=== PATIENT | male | born 1975 | race Hispanic/Latino ===

== ENCOUNTER 2016-08-06 18:19 | Inpatient (IN) | payer MEDICARE ==
[2016-08-06] MEDS ORDERED: KEPPRA 1,000 MG/NS 0.75% 100ML 100 ML IV ONE (18:42)
[2016-08-06] MEDS ORDERED: BOOSTRIX IM ONE (20:16)
[2016-08-06] MEDS ORDERED: NACL 0.9% 1000 ML 1,000 ML IV ONE (20:17)
--- NOTE | 2016-08-06 20:18 | Emergency Department Report ---
ED General Adult HPI - General Chief complaint: Seizure Stated complaint: SIEZURE Time Seen by Provider: 08/06/16 20:09 Source: EMS, RN notes reviewed Mode of arrival: Stretcher Limitations: Altered Mental Status - History of Present Illness Initial comments: This is a 41-year-old male, previously unknown to me. He is brought to the hospital by EMS for altered mental status and possible seizure. As per EMS documentation, patient is found on the floor, actively seizing. Documented history of psychiatric disease, also document a history of seizures, but do not further elaborate. EMS documents last seizure approximately 5 months ago. Apparently bystanders stated seizure lasted 10-15 minutes. EMS documents bilateral lung crackles, patient actively seizing, given 2.0 mg of Ativan, and seizing stopped postmedication. A document patient remained postictal. When I evaluate the patient, he is nonverbal, protecting his airway, moving for extremity is, but cannot further elaborate or describe any symptoms. As per nursing documentation: spoke w/ father Maurizio Alvarez, and [facility] number Elda Durham pt's housing . and [facility] updated history refer to chart. spoke w/ Mr. Gagnon @ [employer], states pt had seizure at 0630. states "pt was in restroom, and started shaking, and sweating and fell and hit his head against the tv stand, eyes rolling behing his head, he couldn't straighten out his fingers, and tensing up". states "this incident happened once a month ago" unable to recall hospital pt was sent to. home medications and provided. medications do not include anticonvulsant medications. -: Sudden Radiation: other (history of present illness) Quality: other (as per history of present illness) Consistency: other (as per history of present illness) Improves with: medication (terminated with Ativan) Worsens with: other (as per history of present illness) Associated Symptoms: other (as per history of present illness. Patient postictal, unable to further elaborate.) - Related Data Home Medications Medication Instructions Recorded Confirmed Last Taken Benztropine [Cogentin] 1 mg PO BID 08/06/16 08/06/16 Unknown Haloperidol Decanoate [Haldol 100 mg IM QMONTH 08/06/16 08/06/16 Unknown Decanoate] Haloperidol [Haldol] 10 mg PO BID 08/06/16 08/06/16 Unknown Allergies Allergy/AdvReac Type Severity Reaction Status Date / Time Unable to Assess Allergy Unverified 08/06/16 21:10 ED Review of Systems ROS: Stated complaint: SIEZURE Other details as noted in HPI Comment: Unobtainable due to pts medical conditions ED Past Medical Hx - Past Medical History Hx Psychiatric Treatment: Yes Additional medical history: unknown medical history - Surgical History Additional Surgical History: unknown - Social History Smoking Status: Current Every Day Smoker - Medications Home Medications: Home Medications Medication Instructions Recorded Confirmed Last Taken Type Benztropine [Cogentin] 1 mg PO BID 08/06/16 08/06/16 Unknown History Haloperidol Decanoate [Haldol 100 mg IM QMONTH 08/06/16 08/06/16 Unknown History Decanoate] Haloperidol [Haldol] 10 mg PO BID 08/06/16 08/06/16 Unknown History ED Physical Exam - General Limitations: Altered Mental Status General appearance: in no apparent distress - Head Head exam: Present: normocephalic, other (right-sided temporal ecchymosis noted. ) - Eye Eye exam: Present: normal appearance, PERRL. Absent: nystagmus - ENT ENT exam: Present: mucous membranes moist, TM's normal bilaterally, normal external ear exam (superficial abrasion/minimal lacerations noted to right posterior ear. 3 lacerations are noted. 1 cm, 0.5 cm, 0.5 cm. There is no foreign body.) - Neck Neck exam: Present: normal inspection. Absent: tenderness - Respiratory Respiratory exam: Present: rhonchi. Absent: respiratory distress - Cardiovascular Cardiovascular Exam: Present: regular rate, normal rhythm, normal heart sounds. Absent: bradycardia, tachycardia, irregular rhythm, systolic murmur, diastolic murmur, rubs, gallop - GI/Abdominal GI/Abdominal exam: Present: soft, normal bowel sounds. Absent: distended, tenderness, guarding, rebound, rigid, pulsatile mass - Rectal Rectal exam: Present: normal inspection - exam: Present: normal inspection - Extremities Exam Extremities exam: Present: normal inspection, normal capillary refill. Absent: tenderness, calf tenderness - Back Exam Back exam: Present: normal inspection, full ROM. Absent: tenderness, CVA tenderness (R), CVA tenderness (L), muscle spasm, paraspinal tenderness, vertebral tenderness - Neurological Exam Neurological exam: Present: altered, other (patient moves t 4 extremities spontaneously. Nonverbal.) - Psychiatric Psychiatric exam: Present: other (patient altered) - Skin Skin exam: Present: ecchymosis (os is noted to right forehead.) ED Course Vital Signs 08/06/16 08/06/16 08/06/16 18:55 19:01 19:18 Temperature 97.8 F Pulse Rate 76 77 Respiratory 21 22 20 Rate Blood Pressure Blood Pressure 139/93 [Left] O2 Sat by Pulse 100 99 99 Oximetry 08/06/16 08/06/16 08/06/16 20:00 21:00 21:31 Temperature 97.8 F Pulse Rate 83 97 H Respiratory 25 H 15 Rate Blood Pressure 155/101 159/91 Blood Pressure [Left] O2 Sat by Pulse 98 94 Oximetry 08/06/16 08/06/16 08/06/16 22:01 22:47 23:01 Temperature Pulse Rate 77 74 93 H Respiratory 22 20 28 H Rate Blood Pressure 179/106 179/106 191/118 Blood Pressure [Left] O2 Sat by Pulse 93 99 97 Oximetry 08/07/16 08/07/16 08/07/16 00:01 01:01 01:25 Temperature Pulse Rate 110 H Respiratory 15 25 H 18 Rate Blood Pressure 191/118 166/103 Blood Pressure 164/106 [Left] O2 Sat by Pulse 95 97 100 Oximetry 08/07/16 08/07/16 02:00 04:00 Temperature Pulse Rate 79 105 H Respiratory 18 24 Rate Blood Pressure 158/94 Blood Pressure 160/111 [Left] O2 Sat by Pulse 96 100 Oximetry - Reevaluation(s) Reevaluation #1: 08/06/16 21:24 Differential diagnosis: Intracranial injury, cervical spine injury, pneumonia, urinary tract infection, electrolyte imbalance, medication side effect (Haldol) disease. Assessment and plan: 41-year-old male status post convulsive episode, uncertain if he has a formal diagnosis of epilepsy, postictal. CAT scan of the head and cervical spine are ordered. Cervical collar is ordered. Tetanus vaccination is ordered. Right ear lacerations are very small, they can be repaired with steristrips Since nurse irrigated the ear wounds very thoroughly with sterile saline and adequate pressure, and then approximated with Steri-Strips. Laboratory studies pending. EKG pending. Urinalysis pending. Rectal temperature pending. Plain films pending. Reassess. 08/06/16 22:26 Reevaluation #2: 08/06/16 22:24 Patient afebrile rectally. Compartments soft. No clonus. No hyperreflexia. Loaded with Keppra. Found to be hyponatremic. Additional laboratory studies ordered. Nephrology paged. CAT scan of the head and cervical spine pending. Case discussed with Hospital physician, Dr. Jasso, who accepts the patient to his service. Reevaluation #3: 08/06/16 22:42 Dr. Sheriff of nephrology calls back. He recommends 200 mL of 3% hypertonic sodium chloride to be run over 6 hours. He also recommends a thyroid panel, uric acid level, serum osmolality, and serum sodium levels every 6 hours. His group will follow as a consult. Dr. Jasso, the hospital physician, accepts the patient to his service. I contacted the pharmacy, discussed these orders with the pharmacist, who is going to prepare the hypertonic saline. ED Medical Decision Making - Lab Data Result diagrams: 08/06/16 20:33 08/06/16 20:33 Vital Signs 08/06/16 19:18 Temperature 97.8 F Pulse Rate 77 Respiratory 20 Rate Blood Pressure 139/93 [Left] O2 Sat by Pulse 99 Oximetry Lab Results 08/06/16 08/06/16 08/06/16 Range/Units 20:33 20:33 20:33 WBC 18.3 H (4.5-11.0) K/mm3 RBC 5.11 H (3.65-5.03) M/mm3 Hgb 15.6 H (11.8-15.2) gm/dl Hct 44.6 (35.5-45.6) % MCV 87 (84-94) fl MCH 31 (28-32) pg MCHC 35 H (32-34) % RDW 13.0 L (13.2-15.2) % Plt Count 238 (140-440) K/mm3 Seg Neutrophils % [employer] Custodian PT 13.9 (12.2-14.9) Sec. INR 1.08 (0.87-1.13) Estimated GFR > 60 ml/min BUN/Creatinine Ratio 8.33 % Albumin/Globulin Ratio 2.0 % Plasma/Serum Alcohol (0-0.07) gm% 08/06/16 Range/Units 20:33 WBC (4.5-11.0) K/mm3 RBC (3.65-5.03) M/mm3 Hgb (11.8-15.2) gm/dl Hct (35.5-45.6) % MCV (84-94) fl MCH (28-32) pg MCHC (32-34) % RDW (13.2-15.2) % Plt Count (140-440) K/mm3 Seg Neutrophils % PT (12.2-14.9) Sec. INR (0.87-1.13) Estimated GFR ml/min BUN/Creatinine Ratio % Albumin/Globulin Ratio % Plasma/Serum Alcohol < 0.01 (0-0.07) gm% - EKG Data 08/06/16 22:27 normal sinus, 77 bpm, QTC 470 ms, borderline atrial enlargement, abnormal EKG, not morphologically consistent with stemi - Radiology Data Radiology results: report reviewed, image reviewed Critical Care Time: Yes Critical care time in (mins) excluding proc time.: 35 Critical care attestation.: If time is entered above; I have spent that time in minutes in the direct care of this critically ill patient, excluding procedure time. Critical Care Time: Critical care time includes multiple bedside evaluations, interpretation of laboratory studies, radiology studies, time spent managing a critically ill patient with severe hyponatremia causing change in mental status, requiring initiation of hypertonic saline, consultation with nephrology and hospital medicine. This excludes procedure time. ED Disposition Clinical Impression: Hyponatremia, Altered mental status Disposition: OP ADMITTED IP TO THIS HOSP Is pt being admited?: Yes Condition: Fair
[2016-08-06] MEDS ORDERED: GEODON IM ONE ×2 (20:45→20:49)
[2016-08-06] MEDS ORDERED: WATER FOR INJ (PF) 10 ML ONE (20:50)
[2016-08-06] MEDS ORDERED: NACL 0.9% IR ONE (21:00)
[2016-08-06] MEDS ORDERED: NACL 0.9% 500 ML IR ONE (21:04)
[2016-08-06 21:10] LABS: Hematocrit 44.6 % (35.5-45.6); Hemoglobin 15.6 gm/dl (11.8-15.2); Mean Corpuscular HGB Conc 35 % (32-34); Mean Corpuscular Hemoglobin 31 pg (28-32); Mean Corpuscular Volume 87 fl (84-94); Platelet Count 238 K/mm3 (140-440); Red Blood Count 5.11 M/mm3 (3.65-5.03); White Blood Count 18.3 K/mm3 (4.5-11.0)
[2016-08-06 21:17] LABS: INR 1.08 (0.87-1.13)
[2016-08-06 21:22] LABS: Urine Drugs of Abuse Note Disclamer
[2016-08-06 21:23] LABS: Alanine Aminotransferase 12 units/L (7-56); Albumin 4.5 g/dL (3.9-5); Alkaline Phosphatase 87 units/L (35-129); BUN/Creatinine Ratio 8.33; Bilirubin,Total 1.2 mg/dL (0.1-1.2); Blood Urea Nitrogen 5 mg/dL (9-20); Calcium 8.9 mg/dL (8.4-10.2); Carbon Dioxide 21 mmol/L (22-30); Chloride 79.5 mmol/L (98-107); Creatine Kinase 440 units/L (55-170); Glucose 123 mg/dL (75-100); Potassium 4.2 mmol/L (3.6-5.0); Total Protein 6.7 g/dL (6.3-8.2)
[2016-08-06 21:36] LABS: Bilirubin,Urine NEG (Negative); Blood,Urine NEG (Negative); Ketones,Urine TR mg/dL (Negative); Leukocyte Esterase,Urine NEG (Negative); Nitrite,Urine NEG (Negative); Protein,Urine <15 mg/dL mg/dL (Negative); RBC,Urine < 1.0 /HPF (0.0-6.0); Urobilinogen,Urine < 2.0 mg/dL (<2.0); WBC,Urine < 1.0 /HPF (0.0-6.0)
[2016-08-06 21:38] LABS: Anion Gap 20 mmol/L; Sodium 116 mmol/L (137-145)
--- NOTE | 2016-08-06 21:42 | Admit Criteria Form ---
Admission Criteria Documentation: SEIZURE: OBSERVATION CARE USE THIS FORM ONLY WHEN INPATIENT ADMISSION CRITERIA ARE NOT MET. (Place X for any and all applicable criteria): Placement for observation care is indicated for a patient with ANY ONE of the following (1)(2)(3)(4)(5)(6)(7)(8): []I. Mental status not returned to baseline []II. New neurologic deficit after postictal period []III. Metabolic cause, such as hypoglycemia or hyponatremia []IV. Underlying disorder that requires further observation []V. Multiple seizures before arrival in emergency department []. Medication initiation or adjustment planned that requires further observation []VII. A child whose situation includes ANY ONE of the following: []a) Clinical response to outpatient therapy uncertain []b) Outpatient observation by parents or caregivers uncertain [X]VIII. Other observation care needs (Use General Criteria: Observation Care) The original [facility] [employer] content created by [facility] [employer] has been revised. The portions of the content which have been revised are identified through the use of italic text, and [facility] has neither reviewed nor approved the modified material. All other unmodified content is copyright [facility]. Please see references footnoted in the original [facility] edition 2014 Admission Criteria Met: Pending
[2016-08-06] MEDS ORDERED: KEPPRA 1,000 MG in D5W 100 ML IV ONE (21:46)
[2016-08-06 21:56] LABS: Basophils % (Manual) 0 % (0.0-1.8); Blastocytes % (Manual) 0 %; Eosinophils % (Manual) 0 % (0.0-4.3)
[2016-08-06 21:57] LABS: Anisocytosis Few; Diff Status Complete; Poikilocytosis Few
[2016-08-06] MEDS ORDERED: VALIUM ONE (22:01)
[2016-08-06] MEDS ORDERED: VALIUM IV ONE (22:42)
--- NOTE | 2016-08-06 22:50 | History and Physical Report ---
History of Present Illness Chief complaint: confusion History of present illness: 41 YO Male with Nicotine Dependence, Psychosis presents to ED for confusion. Pt unable to provide history. Pt found down as per EMS undergoing active seizure. Pt transported to ED for evaluation. Pt found to have hyponatremia. Pt treated with hypertonic saline in ED. Pt transferred to ICU. Past History Past Medical History: other (Nicotine Dependence) Past Surgical History: No surgical history, Other (reviewed) Social history: single, lives with family, smoking. denies: alcohol abuse, prescription drug abuse Family history: no significant family history, other (reviewed) Medications and Allergies Allergies Allergy/AdvReac Type Severity Reaction Status Date / Time Unable to Assess Allergy Unverified 08/06/16 21:10 Home Medications Medication Instructions Recorded Confirmed Last Taken Type Benztropine [Cogentin] 1 mg PO BID 08/06/16 08/06/16 Unknown History Haloperidol Decanoate [Haldol 100 mg IM QMONTH 08/06/16 08/06/16 Unknown History Decanoate] Haloperidol [Haldol] 10 mg PO BID 08/06/16 08/06/16 Unknown History Active Meds: Active Medications Sodium Chloride (Nacl 3%) 500 mls @ 33 mls/hr IV DIRECT GILBERTO Review of Systems ROS unobtainable: due to mental status Exam - Constitutional Vitals: Temp Pulse Resp BP Pulse Ox 97.8 F 77 20 139/93 100 08/06/16 21:31 08/06/16 19:18 08/06/16 19:18 08/06/16 19:18 08/06/16 19:18 General appearance: Present: severe distress - EENT Eyes: Present: PERRL ENT: hearing intact, clear oral mucosa - Neck Neck: Present: supple, normal ROM - Respiratory Respiratory: bilateral: CTA - Cardiovascular Heart Sounds: Present: S1 & S2. Absent: rub, click - Extremities Extremities: pulses symmetrical, No edema Peripheral Pulses: within normal limits - Abdominal General gastrointestinal: Present: soft, non-tender, non-distended Male genitourinary: Present: normal - Integumentary Integumentary: Present: clear, warm, dry, decreased turgor - Musculoskeletal Musculoskeletal: generalized weakness - Psychiatric Psychiatric: no appropriate mood/affect, no intact judgment & insight, no memory intact, agitated - Neurologic Neurologic: moves all extremities Results - Labs CBC & Chem 7: 08/06/16 20:33 08/07/16 07:49 Labs: Abnormal lab results 08/06/16 08/06/16 08/06/16 Range/Units 20:33 20:33 20:33 WBC 18.3 H (4.5-11.0) K/mm3 RBC 5.11 H (3.65-5.03) M/mm3 Hgb 15.6 H (11.8-15.2) gm/dl MCHC 35 H (32-34) % RDW 13.0 L (13.2-15.2) % Seg Neuts % (Manual) 93.0 H (40.0-70.0) % Lymphocytes % (Manual) 4.0 L (13.4-35.0) % Seg Neutrophils # Man 17.0 H (1.8-7.7) K/mm3 Lymphocytes # (Manual) 0.7 L (1.2-5.4) K/mm3 Sodium 116 L* (137-145) mmol/L Chloride 79.5 L (98-107) mmol/L Carbon Dioxide 21 L (22-30) mmol/L BUN 5 L (9-20) mg/dL Creatinine 0.6 L (0.8-1.5) mg/dL Glucose 123 H (75-100) mg/dL Total Creatine Kinase 440 H (55-170) units/L Ur Specific [place] (1.003-1.030) Salicylates < 0.3 L (2.8-20.0) mg/dL 08/06/16 Range/Units 21:17 WBC (4.5-11.0) K/mm3 RBC (3.65-5.03) M/mm3 Hgb (11.8-15.2) gm/dl MCHC (32-34) % RDW (13.2-15.2) % Seg Neuts % (Manual) (40.0-70.0) % Lymphocytes % (Manual) (13.4-35.0) % Seg Neutrophils # Man (1.8-7.7) K/mm3 Lymphocytes # (Manual) (1.2-5.4) K/mm3 Sodium (137-145) mmol/L Chloride (98-107) mmol/L Carbon Dioxide (22-30) mmol/L BUN (9-20) mg/dL Creatinine (0.8-1.5) mg/dL Glucose (75-100) mg/dL Total Creatine Kinase (55-170) units/L Ur Specific [place] 1.001 L (1.003-1.030) Salicylates (2.8-20.0) mg/dL Assessment and Plan - Patient Problems (1) Hyponatremia Current Visit: Yes Status: Acute Plan to address problem: Hypertonic saline, Nephrology consulted in ED. Pt admitted to ICU. The high probability of a clinically significant, sudden or life threatening deterioration of the [Endocrine, Respiratory] system(s) required my full and direct attention, intervention and personal management. The aggregate critical care time was [60] minutes. This time is in addition to time spent performing reported procedures but includes the following: [x] Data Review and interpretation [x] Patient assessment and monitoring of vital signs [x] Documentation [x] Medication orders and management (2) Encephalopathy Current Visit: Yes Status: Acute Plan to address problem: treat hyponatremia (3) Psychosis Current Visit: Yes Status: Acute Plan to address problem: Haldol prn, soft limb restraints. (4) Seizure disorder Current Visit: Yes Status: Acute Plan to address problem: secondary to hyponatremia, treat hyponatremia. (5) DVT prophylaxis Current Visit: Yes Status: Acute
--- NOTE | 2016-08-06 23:06 | XRay Report ---
FINAL REPORT EXAM: XR CHEST 1V AP HISTORY: Altered Mental Status TECHNIQUE: Single, portable chest x-ray. PRIORS: None. FINDINGS: Cardiac and mediastinal silhouette within normal limits. Lungs show mild elevation or eventration of right hemidiaphragm and probable discoid atelectasis versus scarring in the bilateral lower lungs. No focal consolidation or apparent pneumothorax. IMPRESSION: 1. Probable bibasilar atelectasis versus scarring. 2. No acute consolidation.
[2016-08-06] MEDS: NACL 3% 500 ML IV SCH (23:25)
--- NOTE | 2016-08-07 00:32 | Cat Scan Report ---
FINAL REPORT EXAM: CT HEAD/BRAIN WO CON HISTORY: Altered Mental Status TECHNIQUE: Noncontrast CT axial images of the brain. PRIORS: None. FINDINGS: No parenchymal mass, mass effect, hemorrhage, midline shift or hydrocephalus. No evidence of acute cortical infarct. No abnormal, extra-axial fluid or air collection. Osseous calvarium grossly intact. IMPRESSION: 1. No acute intracranial findings.
--- NOTE | 2016-08-07 00:34 | Cat Scan Report ---
FINAL REPORT EXAM: CT CERVICAL SPINE WO CON HISTORY: ams TECHNIQUE: Spiral CT scanning of the cervical spine, with axial images and multiplanar reformations. PRIORS: None. FINDINGS: No acute compression deformity or gross malalignment of cervical vertebral bodies. No apparent fracture identified. No acute, osseous central spinal canal encroachment. Paraspinal soft tissues grossly unremarkable. IMPRESSION: 1. No acute compression deformity or apparent fracture in the cervical spine.
[2016-08-07] MEDS ORDERED: HALDOL ONE (01:06)
[2016-08-07] MEDS: HALDOL IM PRN ×3 (02:04→13:35)
[2016-08-07] MEDS: APRESOLINE IV PRN ×2 (05:23→13:09)
[2016-08-07 06:34] LABS: BUN/Creatinine Ratio 6.66; Blood Urea Nitrogen 4 mg/dL (9-20); Calcium 9.5 mg/dL (8.4-10.2); Carbon Dioxide 22 mmol/L (22-30); Chloride 96.5 mmol/L (98-107); Glucose 82 mg/dL (75-100); Potassium 4.2 mmol/L (3.6-5.0); Sodium 134 mmol/L (137-145)
[2016-08-07 06:37] LABS: Anion Gap 20 mmol/L
[2016-08-07] MEDS: NACL 3% 500 ML IV SCH (07:11)
[2016-08-07] MEDS: ZOSYN/NS 4.5GM/100ML 100 ML IV SCH ×4 (07:30→23:42)
--- NOTE | 2016-08-07 08:17 | XRay Report ---
AP PELVIS: AP view of the pelvis shows normal pelvic contour and soft tissues. The hips are symmetric and within normal limits as are the sacroiliac joints. IMPRESSION: Normal pelvis.
[2016-08-07 08:23] LABS: BUN/Creatinine Ratio 8.33; Blood Urea Nitrogen 5 mg/dL (9-20); Calcium 9.1 mg/dL (8.4-10.2); Carbon Dioxide 22 mmol/L (22-30); Glucose 89 mg/dL (75-100)
[2016-08-07 08:24] LABS: Chloride 97.9 mmol/L (98-107); Potassium 3.8 mmol/L (3.6-5.0); Sodium 134 mmol/L (137-145)
[2016-08-07 08:28] LABS: Anion Gap 18 mmol/L
--- NOTE | 2016-08-07 08:45 | Consultation ---
History of Present Illness - Reason for Consult Consult date: 08/07/16 hyponatremia Requesting physician: WALTER NORRIS - History of Present Illness This is a 41-year-old male, brought to the hospital by EMS for altered mental status and possible seizure. As per EMS documentation, patient was found on the floor, actively seizing. Documented history of psychiatric disease, also document a history of seizures. Apparently bystanders stated seizure lasted 10-15 minutes. Patient had received some Geodon and not able to get any additional history from patient. Renal consult is requested for hyponatremia. His serum sodium was 116 yesterday. He had received about 200 mL of 3% saline overnight. His serum sodium this morning is 134. Review of our but indicates that he had put out about 10 L of urine since he has been in the emergency room. Past History Past Medical History: seizures, other (psychiatric disorder) Past Surgical History: Other (unknown) Social history: other (patient lives in a fdc house) Family history: other (unknown) Medications and Allergies Allergies Allergy/AdvReac Type Severity Reaction Status Date / Time Unable to Assess Allergy Unverified 08/06/16 21:10 Home Medications Medication Instructions Recorded Confirmed Last Taken Type Benztropine [Cogentin] 1 mg PO BID 08/06/16 08/06/16 Unknown History Haloperidol Decanoate [Haldol 100 mg IM QMONTH 08/06/16 08/06/16 Unknown History Decanoate] Haloperidol [Haldol] 10 mg PO BID 08/06/16 08/06/16 Unknown History Active Meds: Active Medications Benztropine Mesylate (Cogentin) 1 mg PO BID GILBERTO Haloperidol Lactate (Haldol) 5 mg IM Q6H PRN PRN Reason: Agitation Last Admin: 08/07/16 02:04 Dose: 5 mg Hydralazine HCl (Apresoline) 10 mg IV Q6H PRN PRN Reason: Hypertension Last Admin: 08/07/16 05:23 Dose: 10 mg Sodium Chloride (Nacl 3%) 500 mls @ 33 mls/hr IV DIRECT GILBERTO Stop: 08/07/16 14:10 Last Admin: 08/07/16 07:11 Dose: Not Given Levofloxacin/Dextrose (Levaquin 750mg/150ml) 150 mls @ 100 mls/hr IV Q24HR GILBERTO PRN Reason: Protocol Piperacillin Sod/Tazobactam Sod (Zosyn/Ns 4.5gm/100ml) 100 mls @ 100 mls/30 min IV Q6HR GILBERTO PRN Reason: Protocol Last Admin: 08/07/16 07:30 Dose: 100 mls/30 min Review of Systems ROS unobtainable: due to mental status Exam - Vital Signs Vital signs: Vital Signs Resp Pulse Ox 21 100 08/06/16 18:55 08/06/16 18:55 - General Appearance General appearance: well-developed, well-nourished, appears stated age EENT: PERRL, mucous membranes moist Neck: Present: neck supple, trachea midline. Absent: JVD/HJR, Masses Respiratory: Clear to Ascultation Heart: regular, normal heart rate, S1S2, no murmurs Gastrointestinal: Present: normal, normoactive bowel sounds Integumentary: no rash, warm and dry Neurologic: no focal deficit Results - Lab Results 08/06/16 20:33 08/07/16 07:49 Most recent lab results Calcium 9.1 mg/dL (8.4-10.2) 08/07/16 07:49 Magnesium 1.9 mg/dL (1.7-2.3) 08/06/16 20:33 Assessment and Plan Impression * Severe hyponatremia. 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 He is also polyuric. He has put out about 10 L of urine since his arrival to the ER. 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 He seems to have corrected his hyponatremia spontaneously * His serum sodium has gone up from 116 on admission to 134. Need to reduce the rate of rise of his serum sodium. Shall add intravenous dextrose and monitor his electrolytes closely * Shall check a urine sodium and urine osmolality. Shall also do additional workup for hyponatremia including a uric acid level, TSH and serum cortisol * Need strict intake and output * Shall check a magnesium and phosphorus level as well * Thank you very much for the consultation. Shall follow along with you
--- NOTE | 2016-08-07 09:06 | Progress Note ---
Assessment and Plan Assessment and plan: Patient is a 41-year-old male, brought to the hospital by EMS for altered mental status and possible seizure. He is a resident of a psychiatric facility called [facility] presented to the ER today with seizure similar to stimulus spur per staff of the facility. 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 Continue when necessary patient received Geodon, Risperdal. Continue restriants for safety Psych consulted (5) Seizure disorder No further seizure noted. DVT and GI prophylaxis Plan transfer out of the ICU in a.m. if sodium remains stable. The high probability of a clinically significant, sudden or life threatening deterioration of the [Neurological, Renal] system(s) required my full and direct attention, intervention and personal management. The aggregate critical care time was [45] minutes. This time is in addition to time spent performing reported procedures but includes the following: [X] Data Review and interpretation [X] Patient assessment and monitoring of vital signs [X] Documentation [X] Medication orders and management History Interval history: Patient seen and examined this morning,, acutely confused and trashing all over the place No adverse events reported to me by nursing staff Hospitalist Physical - Physical exam Narrative exam: VITAL SIGNS: Reviewed. GENERAL: The patient appeared well nourished and normally developed. Vital signs as documented. HEAD: No signs of head trauma. EYES: Pupils are equal. Extraocular motions intact. EARS: Hearing grossly intact. MOUTH: Oropharynx is normal. NECK: No adenopathy, no JVD. CHEST: Chest with clear breath sounds bilaterally. No wheezes, rales, or rhonchi. CARDIAC: Regular rate and rhythm. S1 and S2, without murmurs, gallops, or rubs. VASCULAR: No Edema. Peripheral pulses normal and equal in all extremities. ABDOMEN: Soft, without detectable tenderness. No sign of distention. No rebound or guarding, and no masses palpated. Bowel Sounds normal. MUSCULOSKELETAL: Good range of motion of all major joints. Extremities without clubbing, cyanosis or edema. NEUROLOGIC EXAM: Alert and oriented to some of. No focal sensory or strength deficits. Vision is normal patient not following any commands due to his uncles. PSYCHIATRIC: Confused and agitated. SKIN: No rash or lesions. - Constitutional Vitals: Temp Pulse Resp BP Pulse Ox 97.8 F 118 H 22 135/99 74 L 08/06/16 21:31 08/07/16 07:01 08/07/16 07:01 08/07/16 07:01 08/07/16 07:01 Results - Labs CBC & Chem 7: 08/07/16 10:22 08/07/16 14:47 Labs: Laboratory Last Values WBC 18.3 K/mm3 (4.5-11.0) H 08/06/16 20:33 RBC 5.11 M/mm3 (3.65-5.03) H 08/06/16 20:33 Hgb 15.6 gm/dl (11.8-15.2) H 08/06/16 20:33 Hct 44.6 % (35.5-45.6) 08/06/16 20:33 MCV 87 fl (84-94) 08/06/16 20:33 MCH 31 pg (28-32) 08/06/16 20:33 MCHC 35 % (32-34) H 08/06/16 20:33 RDW 13.0 % (13.2-15.2) L 08/06/16 20:33 Plt Count 238 K/mm3 (140-440) 08/06/16 20:33 Add Manual Diff Complete 08/06/16 20:33 Total Counted 100 08/06/16 20:33 Seg Neutrophils % Membership Correspondent 08/06/16 20:33 Seg Neuts % (Manual) 93.0 % (40.0-70.0) H 08/06/16 20:33 Band Neutrophils % 0 % 08/06/16 20:33 Lymphocytes % (Manual) 4.0 % (13.4-35.0) L 08/06/16 20:33 Reactive Lymphs % (Man) 0 % 08/06/16 20:33 Monocytes % (Manual) 3.0 % (0.0-7.3) 08/06/16 20:33 Eosinophils % (Manual) 0 % (0.0-4.3) 08/06/16 20:33 Basophils % (Manual) 0 % (0.0-1.8) 08/06/16 20:33 Metamyelocytes % 0 % 08/06/16 20:33 Myelocytes % 0 % 08/06/16 20:33 Promyelocytes % 0 % 08/06/16 20:33 Blast Cells % 0 % 08/06/16 20:33 Nucleated RBC % Not Reportable 08/06/16 20:33 Seg Neutrophils # Man 17.0 K/mm3 (1.8-7.7) H 08/06/16 20:33 Band Neutrophils # 0.0 K/mm3 08/06/16 20:33 Lymphocytes # (Manual) 0.7 K/mm3 (1.2-5.4) L 08/06/16 20:33 Abs React Lymphs (Man) 0.0 K/mm3 08/06/16 20:33 Monocytes # (Manual) 0.5 K/mm3 (0.0-0.8) 08/06/16 20:33 Eosinophils # (Manual) 0.0 K/mm3 (0.0-0.4) 08/06/16 20:33 Basophils # (Manual) 0.0 K/mm3 (0.0-0.1) 08/06/16 20:33 Metamyelocytes # 0.0 K/mm3 08/06/16 20:33 Myelocytes # 0.0 K/mm3 08/06/16 20:33 Promyelocytes # 0.0 K/mm3 08/06/16 20:33 Blast Cells # 0.0 K/mm3 08/06/16 20:33 WBC Morphology Not Reportable 08/06/16 20:33 Hypersegmented Neuts Not Reportable 08/06/16 20:33 Hyposegmented Neuts Not Reportable 08/06/16 20:33 Hypogranular Neuts Not Reportable 08/06/16 20:33 Smudge Cells Not Reportable 08/06/16 20:33 Toxic Granulation Not Reportable 08/06/16 20:33 Toxic Vacuolation Not Reportable 08/06/16 20:33 Dohle Bodies Not Reportable 08/06/16 20:33 Pelger-Huet Anomaly Not Reportable 08/06/16 20:33 [place] Rods Not Reportable 08/06/16 20:33 Platelet Estimate Appears normal 08/06/16 20:33 Clumped Platelets Not Reportable 08/06/16 20:33 Plt Clumps, EDTA Not Reportable 08/06/16 20:33 Large Platelets Not Reportable 08/06/16 20:33 Giant Platelets Not Reportable 08/06/16 20:33 Platelet Satelliting Not Reportable 08/06/16 20:33 Plt Morphology Comment Not Reportable 08/06/16 20:33 RBC Morphology Not Reportable 08/06/16 20:33 Dimorphic RBCs Not Reportable 08/06/16 20:33 Polychromasia Not Reportable 08/06/16 20:33 Hypochromasia Not Reportable 08/06/16 20:33 Poikilocytosis Few 08/06/16 20:33 Anisocytosis Few 08/06/16 20:33 Microcytosis Not Reportable 08/06/16 20:33 Macrocytosis Not Reportable 08/06/16 20:33 Spherocytes Not Reportable 08/06/16 20:33 Pappenheimer Bodies Not Reportable 08/06/16 20:33 Sickle Cells Not Reportable 08/06/16 20:33 Target Cells Not Reportable 08/06/16 20:33 Tear Drop Cells Not Reportable 08/06/16 20:33 Ovalocytes Not Reportable 08/06/16 20:33 Helmet Cells Not Reportable 08/06/16 20:33 [place] [employer] Bodies Not Reportable 08/06/16 20:33 [place] Rings Not Reportable 08/06/16 20:33 [place] Cells Not Reportable 08/06/16 20:33 Bite Cells Not Reportable 08/06/16 20:33 Crenated Cell Not Reportable 08/06/16 20:33 Elliptocytes Not Reportable 08/06/16 20:33 Acanthocytes (Spur) Not Reportable 08/06/16 20:33 Rouleaux Not Reportable 08/06/16 20:33 Hemoglobin C Crystals Not Reportable 08/06/16 20:33 Schistocytes Not Reportable 08/06/16 20:33 Malaria parasites Not Reportable 08/06/16 20:33 Bill Bodies Not Reportable 08/06/16 20:33 Hem Pathologist Commnt No 08/06/16 20:33 PT 13.9 Sec. (12.2-14.9) 08/06/16 20:33 INR 1.08 (0.87-1.13) 08/06/16 20:33 Sodium 134 mmol/L (137-145) L 08/07/16 07:49 Potassium 3.8 mmol/L (3.6-5.0) 08/07/16 07:49 Chloride 97.9 mmol/L (98-107) L 08/07/16 07:49 Carbon Dioxide 22 mmol/L (22-30) 08/07/16 07:49 Anion Gap 18 mmol/L 08/07/16 07:49 BUN 5 mg/dL (9-20) L 08/07/16 07:49 Creatinine 0.6 mg/dL (0.8-1.5) L 08/07/16 07:49 Estimated GFR > 60 ml/min 08/07/16 07:49 BUN/Creatinine Ratio 8.33 % 08/07/16 07:49 Glucose 89 mg/dL (75-100) 08/07/16 07:49 Osmolality 257 Mosm/kg 08/07/16 00:04 Lactic Acid 1.5 mmol/L (0.7-2.0) 08/07/16 05:52 Uric Acid 5.2 mg/dL (3.5-7.6) 08/07/16 00:04 Calcium 9.1 mg/dL (8.4-10.2) 08/07/16 07:49 Magnesium 1.9 mg/dL (1.7-2.3) 08/06/16 20:33 Total Bilirubin 1.2 mg/dL (0.1-1.2) 08/06/16 20:33 AST 20 units/L (5-40) 08/06/16 20:33 ALT 12 units/L (7-56) 08/06/16 20:33 Alkaline Phosphatase 87 units/L (35-129) 08/06/16 20:33 Total Creatine Kinase 440 units/L (55-170) H 08/06/16 20:33 Total Protein 6.7 g/dL (6.3-8.2) 08/06/16 20:33 Albumin 4.5 g/dL (3.9-5) 08/06/16 20:33 Albumin/Globulin Ratio 2.0 % 08/06/16 20:33 TSH 0.641 mlU/mL (0.270-4.200) 08/07/16 00:04 Free T4 1.92 ng/dL (0.76-1.46) H 08/07/16 00:04 Urine Color Colorless (Yellow) 08/06/16 21: Urine Turbidity Clear (Clear) 08/06/16 21: Urine pH 7.0 (5.0-7.0) 08/06/16 21:17 Ur Specific [place] 1.001 (1.003-1.030) L 08/06/16 21: Urine Protein <15 mg/dl mg/dL (Negative) 08/06/16 21: Urine Glucose (UA) Neg mg/dL (Negative) 08/06/16 21: Urine Ketones Tr mg/dL (Negative) 08/06/16 21: Urine Blood Neg (Negative) 08/06/16 21: Urine Nitrite Neg (Negative) 08/06/16 21: Urine Bilirubin Neg (Negative) 08/06/16 21: Urine Urobilinogen < 2.0 mg/dL (<2.0) 08/06/16 21: Ur Leukocyte Esterase Neg (Negative) 08/06/16 21: Urine WBC (Auto) < 1.0 /HPF (0.0-6.0) 08/06/16 21:17 Urine RBC (Auto) < 1.0 /HPF (0.0-6.0) 08/06/16 21: U Epithel Cells (Auto) < 1.0 /HPF (0-13.0) 08/06/16 21:17 Salicylates < 0.3 mg/dL (2.8-20.0) L 08/06/16 20:33 Urine Opiates Screen Presumptive negative 08/06/16 21:17 Urine Methadone Screen Presumptive negative 08/06/16 21:17 Acetaminophen < 15.0 ug/mL (10.0-30.0) 08/06/16 20:33 Ur Barbiturates Screen Presumptive negative 08/06/16 21:17 Ur Phencyclidine Scrn Presumptive negative 08/06/16 21:17 Ur Amphetamines Screen Presumptive negative 08/06/16 21:17 U Benzodiazepines Scrn Presumptive negative 08/06/16 21:17 Urine Cocaine Screen Presumptive negative 08/06/16 21:17 U Marijuana (THC) Screen Presumptive negative 08/06/16 21:17 Drugs of Abuse Note Disclamer 08/06/16 21:17 Plasma/Serum Alcohol < 0.01 gm% (0-0.07) 08/06/16 20:33 - Imaging and Cardiology Chest x-ray: image reviewed (mild atelectasis in the bases)
[2016-08-07] MEDS ORDERED: TYLENOL ONE (09:09)
[2016-08-07] MEDS: D5W 1,000 ML IV SCH ×2 (09:42→23:42)
[2016-08-07] MEDS ORDERED: LEVAQUIN 750MG/150ML 150 ML IV SCH (10:00)
[2016-08-07] MEDS ORDERED: TYLENOL PO ONE (10:06)
[2016-08-07] MEDS: COGENTIN PO SCH ×2 (10:07→21:59)
[2016-08-07 10:27] LABS: Sodium, Urine 55 mEq/L
[2016-08-07 10:58] LABS: BUN/Creatinine Ratio 8.33; Blood Urea Nitrogen 5 mg/dL (9-20); Carbon Dioxide 21 mmol/L (22-30); Chloride 99.7 mmol/L (98-107); Glucose 97 mg/dL (75-100); Potassium 3.7 mmol/L (3.6-5.0); Sodium 137 mmol/L (137-145)
[2016-08-07 11:00] LABS: Anion Gap 20 mmol/L
[2016-08-07 11:01] LABS: Basophils % (Auto) 0.1 % (0.0-1.8); Hematocrit 43.9 % (35.5-45.6); Hemoglobin 15.2 gm/dl (11.8-15.2); Mean Corpuscular HGB Conc 35 % (32-34); Mean Corpuscular Hemoglobin 30 pg (28-32); Mean Corpuscular Volume 88 fl (84-94); Platelet Count 244 K/mm3 (140-440); Red Blood Count 5.02 M/mm3 (3.65-5.03); White Blood Count 13.5 K/mm3 (4.5-11.0)
[2016-08-07] MEDS ORDERED: GEODON IM ONE ×3 (11:26→17:06)
[2016-08-07] MEDS ORDERED: WATER FOR INJ (PF) 10 ML ONE ×2 (11:26→17:14)
[2016-08-07] MEDS ORDERED: PNEUMOVAX 23 IM ONE (11:51)
[2016-08-07] MEDS ORDERED: ZOSYN/NS 4.5GM/100ML 100 ML IV ONE (12:57)
[2016-08-07] MEDS ORDERED: APRESOLINE ONE (12:58)
[2016-08-07 15:35] LABS: BUN/Creatinine Ratio 8.57; Blood Urea Nitrogen 6 mg/dL (9-20); Calcium 9.3 mg/dL (8.4-10.2); Carbon Dioxide 20 mmol/L (22-30); Glucose 95 mg/dL (75-100); Potassium 4.1 mmol/L (3.6-5.0); Sodium 138 mmol/L (137-145)
[2016-08-07 15:36] LABS: Anion Gap 21 mmol/L
[2016-08-07] MEDS ORDERED: RisperDAL PO ONE (17:03)
[2016-08-07] MEDS ORDERED: BENADRYL IV ONE (17:08)
[2016-08-07 20:59] LABS: Blood Urea Nitrogen 6 mg/dL (9-20); Calcium 9.1 mg/dL (8.4-10.2); Carbon Dioxide 18 mmol/L (22-30); Chloride 99.7 mmol/L (98-107); Glucose 158 mg/dL (75-100); Potassium 3.3 mmol/L (3.6-5.0); Sodium 138 mmol/L (137-145)
[2016-08-07 21:00] LABS: Anion Gap 24 mmol/L
[2016-08-07] MEDS: RisperDAL PO SCH (21:59)
[2016-08-08 01:01] LABS: BUN/Creatinine Ratio 7.14; Blood Urea Nitrogen 5 mg/dL (9-20); Calcium 9.1 mg/dL (8.4-10.2); Carbon Dioxide 22 mmol/L (22-30); Glucose 92 mg/dL (75-100)
[2016-08-08 01:02] LABS: Chloride 99.2 mmol/L (98-107); Potassium 3.3 mmol/L (3.6-5.0); Sodium 138 mmol/L (137-145)
[2016-08-08 01:03] LABS: Anion Gap 20 mmol/L
[2016-08-08 04:35] LABS: Hematocrit 43.3 % (35.5-45.6); Hemoglobin 15.1 gm/dl (11.8-15.2); Mean Corpuscular HGB Conc 35 % (32-34); Mean Corpuscular Hemoglobin 31 pg (28-32); Mean Corpuscular Volume 89 fl (84-94); Platelet Count 206 K/mm3 (140-440); Red Blood Count 4.88 M/mm3 (3.65-5.03); White Blood Count 10.8 K/mm3 (4.5-11.0)
[2016-08-08 04:55] LABS: BUN/Creatinine Ratio 5.71; Blood Urea Nitrogen 4 mg/dL (9-20); Carbon Dioxide 21 mmol/L (22-30); Chloride 98.9 mmol/L (98-107); Glucose 92 mg/dL (75-100); Potassium 3.4 mmol/L (3.6-5.0); Sodium 136 mmol/L (137-145)
[2016-08-08 04:57] LABS: Anion Gap 20 mmol/L
[2016-08-08] MEDS: ZOSYN/NS 4.5GM/100ML 100 ML IV SCH (06:08)
[2016-08-08 11:17] LABS: Anion Gap 21 mmol/L; BUN/Creatinine Ratio 7.14; Blood Urea Nitrogen 5 mg/dL (9-20); Calcium 9.1 mg/dL (8.4-10.2); Carbon Dioxide 21 mmol/L (22-30); Chloride 98.6 mmol/L (98-107); Glucose 92 mg/dL (75-100); Potassium 3.5 mmol/L (3.6-5.0); Sodium 137 mmol/L (137-145)
--- NOTE | 2016-08-08 12:00 | Consultation ---
History of Present Illness - Reason for Consult Consult date: 08/08/16 ICU/Seizure/Hyponatremia Requesting physician: WALTER NORRIS - History of Present Illness 41 y/o male with psych history, admitted with hyponatremia and seizure. Renal consulted and placed patient briefly on Hypertonic saline. Na corrected greater than 12 mEq in less than 24 hours but patient neurologically is asymptomatic. He was transitioned to the ICU to monitor sodium to make sure it did not drop again. Remainder is negative. Past History Past Medical History: other (Nicotine Dependence) Past Surgical History: No surgical history, Other (reviewed) Social history: single, lives with family, smoking. denies: alcohol abuse, prescription drug abuse Family history: no significant family history, other (reviewed) Medications and Allergies Allergies Allergy/AdvReac Type Severity Reaction Status Date / Time Unable to Assess Allergy Unverified 08/06/16 21:10 Home Medications Medication Instructions Recorded Confirmed Last Taken Type Benztropine [Cogentin] 1 mg PO BID 08/06/16 08/06/16 Unknown History Haloperidol Decanoate [Haldol 100 mg IM QMONTH 08/06/16 08/06/16 Unknown History Decanoate] Haloperidol [Haldol] 10 mg PO BID 08/06/16 08/06/16 Unknown History Active Meds: Active Medications Benztropine Mesylate (Cogentin) 1 mg PO BID [facility] Last Admin: 08/07/16 21:59 Dose: 1 mg Haloperidol Lactate (Haldol) 5 mg IM Q6H PRN PRN Reason: Agitation Last Admin: 08/07/16 13:35 Dose: 5 mg Hydralazine HCl (Apresoline) 10 mg IV Q6H PRN PRN Reason: Hypertension Last Admin: 08/07/16 13:09 Dose: 10 mg Dextrose (D5w) 1,000 mls @ 125 mls/hr IV DIRECT GILBERTO Last Admin: 08/07/16 23:42 Dose: 125 mls/hr Risperidone (Risperdal) 0.5 mg PO BID [facility] Last Admin: 08/07/16 21:59 Dose: 0.5 mg Review of Systems All systems: negative Exam - Constitutional Vitals: Temp Pulse Resp BP Pulse Ox 98.5 F 108 H 22 128/88 96 08/08/16 07:45 08/08/16 08:00 08/08/16 08:00 08/08/16 04:20 08/08/16 08:02 General appearance: Present: no acute distress Results - Labs CBC & Chem 7: 08/08/16 03:58 08/08/16 10:38 Labs: Abnormal lab results 08/07/16 08/07/16 08/07/16 Range/Units 14:47 20:00 23:41 MCHC (32-34) % RDW (13.2-15.2) % Sodium (137-145) mmol/L Potassium 3.3 L 3.3 L (3.6-5.0) mmol/L Carbon Dioxide 20 L 18 L (22-30) mmol/L BUN 6 L 6 L 5 L (9-20) mg/dL Creatinine 0.7 L 0.7 L (0.8-1.5) mg/dL Glucose 158 H (75-100) mg/dL 08/08/16 08/08/16 08/08/16 Range/Units 03:58 03:58 10:38 MCHC 35 H (32-34) % RDW 13.0 L (13.2-15.2) % Sodium 136 L (137-145) mmol/L Potassium 3.4 L 3.5 L (3.6-5.0) mmol/L Carbon Dioxide 21 L 21 L (22-30) mmol/L BUN 4 L 5 L (9-20) mg/dL Creatinine 0.7 L 0.7 L (0.8-1.5) mg/dL Glucose (75-100) mg/dL - Imaging and Cardiology Chest x-ray: image reviewed (clear) Assessment and Plan 41 y/o male with symptomatic hyponatremia. 1. Likely multifactorial causes of hyponatremia. Renal has corrected. No further seizure and no neurologic deficits currently. Stable for transfer out of ICU. Renal to continue to follow.
--- NOTE | 2016-08-08 14:18 | Progress Note ---
Assessment and Plan Assessment and plan: Patient is a 41-year-old male who present to ED via EMS for altered mental status and possible seizure. He is a resident of a psychiatric facility called [facility] presented to the ER today with seizure similar to stimulus spur per staff of the facility. 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 Continue when necessary patient received Geodon, Risperdal. Continue restriants for safety Psych consulted (5) Seizure disorder No further seizure noted. DVT and GI prophylaxis Plan transfer out of the ICU History Interval history: Patient seen and examined. Follow up on ams. Overnight uneventful. No cp, sob, n /v or severe headaches. Imaging, old records, testing, labs, nursing notes reviewed. Hospitalist Physical - Physical exam Narrative exam: GEN: WDWN, NAD, AWAKE, ALERT, ORIENTATED 3 HEENT: NCAT, PERRL, EOMI, OP CLEAR NECK: SUPPLE, NO THYROMEGALY, NO JVD, NO LAD CVS: RRR, NORMAL S1S2 LUNGS/CHEST: CTA B, NORMAL CHEST EXPANSION B, GOOD AIR ENTRY B ABD: SOFT NTND, GBS, NO REBOUND OR GUARDING EXT/SKIN: NO SIGNIFICANT EDEMA OR RASH MSK: FROM X 4 EXTREMITIES NEURO: CN 2-12 GROSSLY INTACT, NO FOCAL DEFICITS PSY: CALM - Constitutional Vitals: Temp Pulse Resp BP Pulse Ox 99.6 F 81 22 128/88 96 08/08/16 11:55 08/08/16 10:00 08/08/16 08:00 08/08/16 04:20 08/08/16 08:02 General appearance: Present: no acute distress Results - Labs CBC & Chem 7: 08/08/16 03:58 08/08/16 10:38 Labs: Laboratory Last Values WBC 10.8 K/mm3 (4.5-11.0) 08/08/16 03:58 RBC 4.88 M/mm3 (3.65-5.03) 08/08/16 03:58 Hgb 15.1 gm/dl (11.8-15.2) 08/08/16 03:58 Hct 43.3 % (35.5-45.6) 08/08/16 03:58 MCV 89 fl (84-94) 08/08/16 03:58 MCH 31 pg (28-32) 08/08/16 03:58 MCHC 35 % (32-34) H 08/08/16 03:58 RDW 13.0 % (13.2-15.2) L 08/08/16 03:58 Plt Count 206 K/mm3 (140-440) 08/08/16 03:58 Lymph % (Auto) 3.3 % (13.4-35.0) L 08/07/16 10:22 [place] % (Auto) 11.0 % (0.0-7.3) H 08/07/16 10:22 Eos % (Auto) 0.0 % (0.0-4.3) 08/07/16 10:22 Baso % (Auto) 0.1 % (0.0-1.8) 08/07/16 10:22 Lymph # 0.4 K/mm3 (1.2-5.4) L 08/07/16 10:22 [place] # 1.5 K/mm3 (0.0-0.8) H 08/07/16 10:22 Eos # 0.0 K/mm3 (0.0-0.4) 08/07/16 10:22 Baso # 0.0 K/mm3 (0.0-0.1) 08/07/16 10:22 Add Manual Diff Complete 08/06/16 20:33 Total Counted 100 08/06/16 20:33 Seg Neutrophils % 85.6 % (40.0-70.0) H 08/07/16 10:22 Seg Neuts % (Manual) 93.0 % (40.0-70.0) H 08/06/16 20:33 Band Neutrophils % 0 % 08/06/16 20:33 Lymphocytes % (Manual) 4.0 % (13.4-35.0) L 08/06/16 20:33 Reactive Lymphs % (Man) 0 % 08/06/16 20:33 Monocytes % (Manual) 3.0 % (0.0-7.3) 08/06/16 20:33 Eosinophils % (Manual) 0 % (0.0-4.3) 08/06/16 20:33 Basophils % (Manual) 0 % (0.0-1.8) 08/06/16 20:33 Metamyelocytes % 0 % 08/06/16 20:33 Myelocytes % 0 % 08/06/16 20:33 Promyelocytes % 0 % 08/06/16 20:33 Blast Cells % 0 % 08/06/16 20:33 Nucleated RBC % Not Reportable 08/06/16 20:33 Seg Neutrophils # 11.5 K/mm3 (1.8-7.7) H 08/07/16 10:22 Seg Neutrophils # Man 17.0 K/mm3 (1.8-7.7) H 08/06/16 20:33 Band Neutrophils # 0.0 K/mm3 08/06/16 20:33 Lymphocytes # (Manual) 0.7 K/mm3 (1.2-5.4) L 08/06/16 20:33 Abs React Lymphs (Man) 0.0 K/mm3 08/06/16 20:33 Monocytes # (Manual) 0.5 K/mm3 (0.0-0.8) 08/06/16 20:33 Eosinophils # (Manual) 0.0 K/mm3 (0.0-0.4) 08/06/16 20:33 Basophils # (Manual) 0.0 K/mm3 (0.0-0.1) 08/06/16 20:33 Metamyelocytes # 0.0 K/mm3 08/06/16 20:33 Myelocytes # 0.0 K/mm3 08/06/16 20:33 Promyelocytes # 0.0 K/mm3 08/06/16 20:33 Blast Cells # 0.0 K/mm3 08/06/16 20:33 WBC Morphology Not Reportable 08/06/16 20:33 Hypersegmented Neuts Not Reportable 08/06/16 20:33 Hyposegmented Neuts Not Reportable 08/06/16 20:33 Hypogranular Neuts Not Reportable 08/06/16 20:33 Smudge Cells Not Reportable 08/06/16 20:33 Toxic Granulation Not Reportable 08/06/16 20:33 Toxic Vacuolation Not Reportable 08/06/16 20:33 Dohle Bodies Not Reportable 08/06/16 20:33 Pelger-Huet Anomaly Not Reportable 08/06/16 20:33 [place] Rods Not Reportable 08/06/16 20:33 Platelet Estimate Appears normal 08/06/16 20:33 Clumped Platelets Not Reportable 08/06/16 20:33 Plt Clumps, EDTA Not Reportable 08/06/16 20:33 Large Platelets Not Reportable 08/06/16 20:33 Giant Platelets Not Reportable 08/06/16 20:33 Platelet Satelliting Not Reportable 08/06/16 20:33 Plt Morphology Comment Not Reportable 08/06/16 20:33 RBC Morphology Not Reportable 08/06/16 20:33 Dimorphic RBCs Not Reportable 08/06/16 20:33 Polychromasia Not Reportable 08/06/16 20:33 Hypochromasia Not Reportable 08/06/16 20:33 Poikilocytosis Few 08/06/16 20:33 Anisocytosis Few 08/06/16 20:33 Microcytosis Not Reportable 08/06/16 20:33 Macrocytosis Not Reportable 08/06/16 20:33 Spherocytes Not Reportable 08/06/16 20:33 Pappenheimer Bodies Not Reportable 08/06/16 20:33 Sickle Cells Not Reportable 08/06/16 20:33 Target Cells Not Reportable 08/06/16 20:33 Tear Drop Cells Not Reportable 08/06/16 20:33 Ovalocytes Not Reportable 08/06/16 20:33 Helmet Cells Not Reportable 08/06/16 20:33 [place] Bodies Not Reportable 08/06/16 20:33 [place] Rings Not Reportable 08/06/16 20:33 [place] Cells Not Reportable 08/06/16 20:33 Bite Cells Not Reportable 08/06/16 20:33 Crenated Cell Not Reportable 08/06/16 20:33 Elliptocytes Not Reportable 08/06/16 20:33 Acanthocytes (Spur) Not Reportable 08/06/16 20:33 Rouleaux Not Reportable 08/06/16 20:33 Hemoglobin C Crystals Not Reportable 08/06/16 20:33 Schistocytes Not Reportable 08/06/16 20:33 Malaria parasites Not Reportable 08/06/16 20:33 Bill Bodies Not Reportable 08/06/16 20:33 Hem Pathologist Commnt No 08/06/16 20:33 PT 13.9 Sec. (12.2-14.9) 08/06/16 20:33 INR 1.08 (0.87-1.13) 08/06/16 20:33 Sodium 137 mmol/L (137-145) 08/08/16 10:38 Potassium 3.5 mmol/L (3.6-5.0) L 08/08/16 10:38 Chloride 98.6 mmol/L (98-107) 08/08/16 10:38 Carbon Dioxide 21 mmol/L (22-30) L 08/08/16 10:38 Anion Gap 21 mmol/L 08/08/16 10:38 BUN 5 mg/dL (9-20) L 08/08/16 10:38 Creatinine 0.7 mg/dL (0.8-1.5) L 08/08/16 10:38 Estimated GFR > 60 ml/min 08/08/16 10:38 BUN/Creatinine Ratio 7.14 % 08/08/16 10:38 Glucose 92 mg/dL (75-100) 08/08/16 10:38 Osmolality 276 Mosm/kg 08/07/16 10:22 Lactic Acid 1.5 mmol/L (0.7-2.0) 08/07/16 05:52 Uric Acid 3.9 mg/dL (3.5-7.6) 08/07/16 10:22 Calcium 9.1 mg/dL (8.4-10.2) 08/08/16 10:38 Magnesium 1.9 mg/dL (1.7-2.3) 08/06/16 20:33 Total Bilirubin 1.2 mg/dL (0.1-1.2) 08/06/16 20:33 AST 20 units/L (5-40) 08/06/16 20:33 ALT 12 units/L (7-56) 08/06/16 20:33 Alkaline Phosphatase 87 units/L (35-129) 08/06/16 20:33 Total Creatine Kinase 440 units/L (55-170) H 08/06/16 20:33 Total Protein 6.7 g/dL (6.3-8.2) 08/06/16 20:33 Albumin 4.5 g/dL (3.9-5) 08/06/16 20:33 Albumin/Globulin Ratio 2.0 % 08/06/16 20:33 TSH 0.500 mlU/mL (0.270-4.200) 08/07/16 10:22 Free T4 1.92 ng/dL (0.76-1.46) H 08/07/16 00:04 Urine Color Colorless (Yellow) 08/06/16 21:17 Urine Turbidity Clear (Clear) 08/06/16 21: Urine pH 7.0 (5.0-7.0) 08/06/16 21:17 Ur Specific [place] 1.001 (1.003-1.030) L 08/06/16 21: Urine Protein <15 mg/dl mg/dL (Negative) 08/06/16 21: Urine Glucose (UA) Neg mg/dL (Negative) 08/06/16 21: Urine Ketones Tr mg/dL (Negative) 08/06/16 21:17 Urine Blood Neg (Negative) 08/06/16 21:17 Urine Nitrite Neg (Negative) 08/06/16 21:17 Urine Bilirubin Neg (Negative) 08/06/16 21:17 Urine Urobilinogen < 2.0 mg/dL (<2.0) 08/06/16 21:17 Ur Leukocyte Esterase Neg (Negative) 08/06/16 21:17 Urine WBC (Auto) < 1.0 /HPF (0.0-6.0) 08/06/16 21:17 Urine RBC (Auto) < 1.0 /HPF (0.0-6.0) 08/06/16 21:17 U Epithel Cells (Auto) < 1.0 /HPF (0-13.0) 08/06/16 21:17 Urine Osmolality 208 Mosm/kg 08/07/16 09:10 Urine Sodium 55 mEq/L 08/07/16 09:10 Salicylates < 0.3 mg/dL (2.8-20.0) L 08/06/16 20:33 Urine Opiates Screen Presumptive negative 08/06/16 21:17 Urine Methadone Screen Presumptive negative 08/06/16 21:17 Acetaminophen < 15.0 ug/mL (10.0-30.0) 08/06/16 20:33 Ur Barbiturates Screen Presumptive negative 08/06/16 21:17 Ur Phencyclidine Scrn Presumptive negative 08/06/16 21:17 Ur Amphetamines Screen Presumptive negative 08/06/16 21:17 U Benzodiazepines Scrn Presumptive negative 08/06/16 21:17 Urine Cocaine Screen Presumptive negative 08/06/16 21:17 U Marijuana (THC) Screen Presumptive negative 08/06/16 21:17 Drugs of Abuse Note Disclamer 08/06/16 21:17 Plasma/Serum Alcohol < 0.01 gm% (0-0.07) 08/06/16 20:33
[2016-08-08] MEDS: RisperDAL PO SCH ×2 (14:40→21:16)
[2016-08-08] MEDS: COGENTIN PO SCH ×2 (14:40→21:16)
[2016-08-08] MEDS: HALDOL IM PRN (19:20)
[2016-08-08] MEDS ORDERED: K-DUR PO ONE (20:17)
--- NOTE | 2016-08-08 20:17 | Progress Note ---
Assessment and Plan hyponatremia appears to have resolved patient was drinking excessive amount of fluid at this time I've advised him to limit his fluid intake Hypokalemia appears to be mild please consider replacing and follow-up Patient's sodium has been stable he has no complaints of any headache or visual disturbances is alert and oriented Will benefit from serial sodium monitoring Upon discharge. A follow-up appointment in the office Will sign off the case please call if needed Subjective Interval history: patient was seen today for follow-up patient was seen around 1:15 in the afternoon He seems to be doing better no complaints of any headache nausea vomiting Claims to be drinking excessive amount of fluid which he is aware now and is willing to reduce the fluid intake Events of this hospitalization noted Objective - Vital Signs Vital signs: Vital Signs - 12hr 08/08/16 08/08/16 08/08/16 10:00 11:55 16:14 Temperature 99.6 F 98.3 F Pulse Rate 81 08/08/16 19:54 Temperature 98.0 F Pulse Rate - General Appearance General appearance: appears stated age (alert awake oriented no acute distress) EENT: mucous membranes moist Neck: no JVD Respiratory: Present: Clear to Ascultation Cardiology: regular Neurologic: other ( alert awake oriented3) Psychiatric: mood/affect appropriate (alert pleasant) - Lab 08/08/16 03:58 08/08/16 10:38 Most recent lab results Calcium 9.1 mg/dL (8.4-10.2) 08/08/16 10:38 Magnesium 1.9 mg/dL (1.7-2.3) 08/06/16 20:33 Urine Sodium 55 mEq/L 08/07/16 09:10
[2016-08-08] MEDS: D5W 1,000 ML IV SCH (20:30)
[2016-08-08] MEDS ORDERED: MOTRIN PO PRN (22:18)
[2016-08-09] MEDS: D5W 1,000 ML IV SCH (04:30)
[2016-08-09 05:44] LABS: Hematocrit 41.6 % (35.5-45.6); Hemoglobin 14.5 gm/dl (11.8-15.2); Mean Corpuscular HGB Conc 35 % (32-34); Mean Corpuscular Hemoglobin 31 pg (28-32); Mean Corpuscular Volume 90 fl (84-94); Platelet Count 190 K/mm3 (140-440); Red Blood Count 4.64 M/mm3 (3.65-5.03); Red Cell Distribution Width 13.4 % (13.2-15.2); White Blood Count 10.1 K/mm3 (4.5-11.0)
[2016-08-09 08:12] VITALS: BP 132/89
[2016-08-09 08:30] LABS: BUN/Creatinine Ratio 8.33; Blood Urea Nitrogen 5 mg/dL (9-20); Calcium 9.1 mg/dL (8.4-10.2); Carbon Dioxide 22 mmol/L (22-30); Chloride 97.2 mmol/L (98-107); Glucose 101 mg/dL (75-100); Sodium 134 mmol/L (137-145)
[2016-08-09 09:11] LABS: Anion Gap 19 mmol/L
[2016-08-09] MEDS ORDERED: HABITROL TD SCH (10:00)
[2016-08-09] MEDS: RisperDAL PO SCH (10:21)
[2016-08-09] MEDS: COGENTIN PO SCH (10:21)
--- NOTE | 2016-08-09 12:38 | Discharge Summary ---
[id number] 08/09/16 Attending physician: SANTO REYES 08/07/16 01:32 Consult to Physician [CONS] Routine Consulting Provider: TACOS HERRON Reason For Exam: hyponatremia, symptomatic Place consult to:: answering service Notified:: yes Phone number called:: [phone] Was contact made?: Yes If yes, spoke with:: Inga Time called:: 06:36 08/07/16 13:37 Consult to Mental Health [CONS] Stat Reason For Exam: combative,ams. Place consult to:: jose martines Notified:: yes Phone number called:: [phone] Was contact made?: Yes If yes, spoke with:: jose martines Time called:: 13:40 Primary care physician: [employer] Hospitalization Condition: Stable Hospital course: Patient is a 41-year-old male who present to ED via EMS for altered mental status and possible seizure. He is a resident of a psychiatric facility called [facility] presented to the ER today with seizure similar to stimulus spur per staff of the facility. 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 Continue when necessary patient received Geodon, Risperdal. Continue restriants for safety Psych consulted (5) Seizure disorder, chronic and worsened due to sodium dysfunction. No further seizure noted. DVT and GI prophylaxis transferred out of the ICU, now stable on the medical floors Time of discharge 32 minutes Disposition: DISCHARGED TO HOME OR SELFCARE Core Measure Documentation - Palliative Care Palliative Care/ Comfort Measures: Not Applicable - Core Measures Any of the following diagnoses?: none - VTE Discharge Requirements Deep Vein Thrombosis/Pulmonary Embolism Present on Admission: No Has pt received <5 days of overlap therapy or INR<2.0: No Anticoagulant overlap therapy prescribed at discharge: No Contraindication No Overlap Therapy order at DC: Not Indicated Exam - Physical Exam Narrative exam: GEN: WDWN, NAD, AWAKE, ALERT, ORIENTATED 3 HEENT: NCAT, PERRL, EOMI, OP CLEAR NECK: SUPPLE, NO THYROMEGALY, NO JVD, NO LAD CVS: RRR, NORMAL S1S2 LUNGS/CHEST: CTA B, NORMAL CHEST EXPANSION B, GOOD AIR ENTRY B ABD: SOFT NTND, GBS, NO REBOUND OR GUARDING EXT/SKIN: NO SIGNIFICANT EDEMA OR RASH MSK: FROM X 4 EXTREMITIES NEURO: CN 2-12 GROSSLY INTACT, NO FOCAL DEFICITS PSY: CALM - Constitutional Vitals: Temp Pulse Resp BP Pulse Ox 99.2 F 93 H 12 132/89 99 08/09/16 08:10 08/09/16 08:10 08/09/16 08:10 08/09/16 08:10 08/09/16 08:10 Plan Activity: advance as tolerated (no strenous activites until cleared by PCP. ) Diet: regular Follow up with: PRIMARY CARE, [Primary Care Provider] - 3-5 Days Prescriptions: Benztropine [Cogentin] 1 mg PO BID #60 tablet risperiDONE [RisperDAL] 0.5 mg PO BID #60 tablet
== END 2016-08-09 16:25 | disposition home or self-care (01) | DRG 640 ==
LOC: ED 18:19 → CC1 08-07 01:18 → 3A 08-08 21:58
PROVIDERS: ADMIT Internal Medicine; ATTEND Internal Medicine
DX: R63.1 Polydipsia (principal); G93.40 Encephalopathy, unspecified; E87.1 Hypo-osmolality and hyponatremia; F23 Brief psychotic disorder; E87.2 Acidosis; F17.200 Nicotine dependence, unspecified, uncomplicated; G40.909 Epilepsy, unspecified, not intractable, without status epilepticus; D72.819 Decreased white blood cell count, unspecified; F25.9 Schizoaffective disorder, unspecified
CPT/HCPCS: 36415; 51702; 70450; 71010; 72125; 72170; 80048; 80053; 80307; 80320; 81001; 82140; 82550; 83735; 83930; 83935; 84300; 84439; 84443; 84550; 85007; 85025; 85027; 85610; 90471; 90715; 90732; 93005; 93010; 96372; 96374; 96375; G0480; J0360; J1200; J1630; J1953; J1956; J2543; J3360; J3486; J7030; J7070

== ENCOUNTER 2016-09-28 18:37 | Emergency (ER) | payer MEDICARE ==
[2016-09-28 21:45] LABS: Eosinophils % (Auto) 0.4 % (0.0-4.3); Hematocrit 49.3 % (35.5-45.6); Hemoglobin 16.3 gm/dl (11.8-15.2); Mean Corpuscular HGB Conc 33 % (32-34); Mean Corpuscular Hemoglobin 30 pg (28-32); Mean Corpuscular Volume 92 fl (84-94); Platelet Count 274 K/mm3 (140-440); Red Blood Count 5.38 M/mm3 (3.65-5.03); Red Cell Distribution Width 13.7 % (13.2-15.2); White Blood Count 11.8 K/mm3 (4.5-11.0)
[2016-09-28 21:52] LABS: Urine Drugs of Abuse Note Disclamer
[2016-09-28 22:01] LABS: Anion Gap 20 mmol/L; Blood Urea Nitrogen 6 mg/dL (9-20); Calcium 9.4 mg/dL (8.4-10.2); Carbon Dioxide 24 mmol/L (22-30); Chloride 92.4 mmol/L (98-107); Glucose 86 mg/dL (75-100); Potassium 3.6 mmol/L (3.6-5.0); Sodium 133 mmol/L (137-145)
[2016-09-28 22:09] LABS: Bilirubin,Urine NEG (Negative); Blood,Urine NEG (Negative); Ketones,Urine NEG (Negative); Leukocyte Esterase,Urine NEG (Negative); Nitrite,Urine NEG (Negative); Protein,Urine <15 mg/dL mg/dL (Negative); RBC,Urine < 1.0 /HPF (0.0-6.0); Urobilinogen,Urine < 2.0 mg/dL (<2.0)
[2016-09-28 22:11] LABS: WBC,Urine < 1.0 /HPF (0.0-6.0)
[2016-09-28] MEDS ORDERED: ATIVAN PO ONE (23:39)
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
[2016-09-29] MEDS ORDERED: CATAPRES PO ONE (00:51)
--- NOTE | 2016-09-29 01:10 | XRay Report ---
FINAL REPORT PROCEDURE: XR ELBOW 2V RT TECHNIQUE: RIGHT elbow radiographs, including AP and lateral views. HISTORY: elbow injury COMPARISON: No prior studies are available for comparison. FINDINGS: Fracture (s) and/or Dislocation(s): None . Alignment: Normal . Joint space(s): Normal . Soft tissues: Normal . Bone mineralization: Normal . Foreign bodies: None . IMPRESSION: Normal Examination
--- NOTE | 2016-09-29 01:14 | XRay Report ---
FINAL REPORT PROCEDURE: XR SHOULDER 2 RT TECHNIQUE: Right shoulder radiographs including AP views in internal and external rotation and abduction. CPT 95033 HISTORY: elbow injury COMPARISON: No prior studies are available for comparison. FINDINGS: Fracture (s) and/or Dislocation(s): There is a lucency through the proximal humerus at the humeral neck. This is consistent with an impacted fracture in this region. There is some osseous formation around the proximal humerus, callus formation from a subacute fracture is possible. No prior studies are available for review. Correlation with the patient's history of trauma is recommended.. Joint space(s): Moderate narrowing of the joint spaces. Soft tissues: Normal . Bone mineralization: Normal . Foreign bodies: None . IMPRESSION: Suspected subacute fracture of the proximal right humerus. This is discussed above. Correlation with clinical history is recommended. Mild arthritis
[2016-09-29 05:15] VITALS: BP 136/86
[2016-09-29] MEDS ORDERED: RisperDAL PO SCH (08:00)
[2016-09-29] MEDS ORDERED: COGENTIN PO SCH (10:00)
== END 2016-09-29 10:42 ==
LOC: EEVIPCON 18:37 → ED 18:37
DX: F25.8 Other schizoaffective disorders (principal); F29 Unspecified psychosis not due to a substance or known physiological condition; F22 Delusional disorders; M25.511 Pain in right shoulder; M25.521 Pain in right elbow; F17.200 Nicotine dependence, unspecified, uncomplicated
CPT/HCPCS: 36415; 73030; 73070; 80048; 80307; 81001; 85025; 99285; G0480; 80320

== ENCOUNTER 2017-10-05 02:42 | Inpatient (IN) | payer MEDICARE ==
[2017-10-05 03:59] LABS: Hematocrit 41.6 % (35.5-45.6); Hemoglobin 14.7 gm/dl (11.8-15.2); Mean Corpuscular HGB Conc 35 % (32-34); Mean Corpuscular Hemoglobin 32 pg (28-32); Mean Corpuscular Volume 90 fl (84-94); Platelet Count 220 K/mm3 (140-440); Red Blood Count 4.62 M/mm3 (3.65-5.03); Red Cell Distribution Width 13.8 % (13.2-15.2)
[2017-10-05 04:05] LABS: Bilirubin,Urine NEG (Negative); Blood,Urine NEG (Negative); Color,Urine Straw (Yellow); Protein,Urine <15 mg/dL mg/dL (Negative); Urobilinogen,Urine < 2.0 mg/dL (<2.0)
[2017-10-05 04:21] LABS: Amphetamine Screen,Urine PRESUMPTIVE NEGATIVE; Benzodiazepines Screen,Urine PRESUMPTIVE NEGATIVE; Cannabinoid Screen,Urine PRESUMPTIVE NEGATIVE; Cocaine Screen,Urine PRESUMPTIVE NEGATIVE; Methadone Screen,Urine PRESUMPTIVE NEGATIVE; Opiate Screen,Urine PRESUMPTIVE NEGATIVE
[2017-10-05 04:21] LABS: RBC,Urine < 1.0 /HPF (0.0-6.0); WBC,Urine < 1.0 /HPF (0.0-6.0)
[2017-10-05 04:22] LABS: BUN/Creatinine Ratio 8; Blood Urea Nitrogen 8 mg/dL (9-20); Calcium 9.1 mg/dL (8.4-10.2); Hemolysis Index 9
[2017-10-05] MEDS ORDERED: NACL 0.9% 1000 ML 1,000 ML IV ONE ×2 (05:06→06:38)
[2017-10-05 05:46] LABS: Basophils % (Manual) 0 % (0.0-1.8); Eosinophils % (Manual) 0 % (0.0-4.3); Total Cells Counted 100
[2017-10-05 05:47] LABS: Platelet Estimate Consistent w Auto
--- NOTE | 2017-10-05 06:39 | Emergency Department Report ---
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 Patient only stated that he is homeless and a permanent disability better in. This is the only thing he communicated to staff. Otherwise although he is alert he would not answer questions. Apparently initially came in belligerent and yelling. There are my examination he is sleeping but arousable but refusing to answer questions. While in his room he stood up and urinated on the floor and then subsequently went back to sleep. Past medical history obtained from previous medical record. - Related Data Home Medications Medication Instructions Recorded Confirmed Last Taken Haloperidol Decanoate [Haldol 100 mg IM QMONTH 08/06/16 09/28/16 Unknown Decanoate] Previous Rx's Medication Instructions Recorded Last Taken Type Benztropine [Cogentin] 1 mg PO BID #60 tablet 08/09/16 Unknown Rx risperiDONE [RisperDAL] 0.5 mg PO BID #60 tablet 08/09/16 Unknown Rx Allergies Allergy/AdvReac Type Severity Reaction Status Date / Time No Known Allergies Allergy Verified 09/28/16 20:30 ED Review of Systems ROS: Stated complaint: DISORIENTED Other details as noted in HPI Comment: Unobtainable due to pts medical conditions ED Past Medical Hx - Past Medical History Previous Medical History?: Yes Hx Seizures: Yes (worsened by hyponatremia) Hx Psychiatric Treatment: Yes (schizoaffective disorder) Additional medical history: Psychogenic polydipsia resulting in hyponatremia - Surgical History Past Surgical History?: No Additional Surgical History: pt is unable to give me info about past surgery - Social History Smoking Status: Current Some Day Smoker Substance Use Type: None - Medications Home Medications: Home Medications Medication Instructions Recorded Confirmed Last Taken Type Haloperidol Decanoate [Haldol 100 mg IM QMONTH 08/06/16 09/28/16 Unknown History Decanoate] Benztropine [Cogentin] 1 mg PO BID #60 tablet 08/09/16 09/28/16 Unknown Rx risperiDONE [RisperDAL] 0.5 mg PO BID #60 tablet 08/09/16 09/28/16 Unknown Rx ED Physical Exam - General Limitations: Other - Other Other exam information: General: Limited due to lack of patient cooperation Head exam: Atraumatic, normocephalic Eyes exam: Normal appearance, pupils equal reactive to light ENT: Moist mucous membrane, normal oropharynx Neck exam: Normal inspection, full range of motion, no meningismus nontender Respiratory exam: Clear to auscultation bilateral, no wheezes, rales, crackles Cardiovascular: Normal rate and rhythm, normal heart sounds Abdomen: Soft, nondistended, and nontender, with normal bowel sounds, no rebound, or guarding Extremity: Full range of motion normal inspection no deformity Back: Normal Inspection, full range of motion, no tenderness Neurologic: Sleeping, arousable, refusing or uanble to answer question , no facial droop, 5/5 upper and lower exam she stressed, gait steady, sensation grossly intact Psychiatric: normal affect, normal mood Skin: Warm, dry, intact ED Course Vital Signs 10/05/17 10/05/17 10/05/17 02:47 03:02 04:46 Temperature 97.9 F 97.9 F Pulse Rate 76 73 Respiratory 18 18 23 Rate Blood Pressure 167/107 167/107 O2 Sat by Pulse 97 97 91 Oximetry 10/05/17 10/05/17 10/05/17 04:57 05:00 05:15 Temperature Pulse Rate 77 76 71 Respiratory 25 H 22 20 Rate Blood Pressure 135/100 135/100 O2 Sat by Pulse 90 91 90 Oximetry 10/05/17 10/05/17 10/05/17 05:30 05:45 06:00 Temperature Pulse Rate 68 66 71 Respiratory 19 19 20 Rate Blood Pressure 138/93 138/93 136/88 O2 Sat by Pulse 87 88 Oximetry 10/05/17 10/05/17 10/05/17 06:15 06:30 06:45 Temperature Pulse Rate 72 76 63 Respiratory 19 12 15 Rate Blood Pressure 138/93 151/105 150/101 O2 Sat by Pulse 90 90 95 Oximetry 10/05/17 07:00 Temperature Pulse Rate 66 Respiratory 20 Rate Blood Pressure 158/103 O2 Sat by Pulse 92 Oximetry ED Medical Decision Making - Lab Data Result diagrams: 10/05/17 03:44 10/05/17 03:44 Lab Results 10/05/17 10/05/17 10/05/17 Range/Units 03:10 03:30 03:44 WBC (4.5-11.0) K/mm3 RBC (3.65-5.03) M/mm3 Hgb (11.8-15.2) gm/dl Hct (35.5-45.6) % MCV (84-94) fl MCH (28-32) pg MCHC (32-34) % RDW (13.2-15.2) % Plt Count (140-440) K/mm3 Baso % (Auto) Add Manual Diff Total Counted Seg Neuts % (Manual) (40.0-70.0) % Band Neutrophils % % Lymphocytes % (Manual) (13.4-35.0) % Reactive Lymphs % (Man) % Monocytes % (Manual) (0.0-7.3) % Eosinophils % (Manual) (0.0-4.3) % Basophils % (Manual) (0.0-1.8) % Metamyelocytes % % Myelocytes % % Promyelocytes % % Blast Cells % % Nucleated RBC % Seg Neutrophils # Man (1.8-7.7) K/mm3 Band Neutrophils # K/mm3 Lymphocytes # (Manual) (1.2-5.4) K/mm3 Abs React Lymphs (Man) K/mm3 Monocytes # (Manual) (0.0-0.8) K/mm3 Eosinophils # (Manual) (0.0-0.4) K/mm3 Basophils # (Manual) (0.0-0.1) K/mm3 Metamyelocytes # K/mm3 Myelocytes # K/mm3 Promyelocytes # K/mm3 Blast Cells # K/mm3 WBC Morphology Hypersegmented Neuts Hyposegmented Neuts Hypogranular Neuts Smudge Cells Toxic Granulation Toxic Vacuolation Dohle Bodies Pelger-Huet Anomaly [place] Rods Platelet Estimate Clumped Platelets Plt Clumps, EDTA Large Platelets Giant Platelets Platelet Satelliting Plt Morphology Comment RBC Morphology Dimorphic RBCs Polychromasia Hypochromasia Poikilocytosis Anisocytosis Microcytosis Macrocytosis Spherocytes Pappenheimer Bodies Sickle Cells Target Cells Tear Drop Cells Ovalocytes Helmet Cells [place] Bodies [place] Rings Lyle Cells Bite Cells Crenated Cell Elliptocytes Acanthocytes (Spur) Rouleaux Hemoglobin C Crystals Schistocytes Malaria parasites Bill Bodies Hem Pathologist Commnt Sodium (137-145) mmol/L Potassium (3.6-5.0) mmol/L Chloride (98-107) mmol/L Carbon Dioxide (22-30) mmol/L Anion Gap mmol/L BUN (9-20) mg/dL Creatinine (0.8-1.5) mg/dL Estimated GFR ml/min BUN/Creatinine Ratio % Glucose (75-100) mg/dL Calcium (8.4-10.2) mg/dL Urine Color Straw (Yellow) Urine Turbidity Clear (Clear) Urine pH 6.0 (5.0-7.0) Ur Specific [place] 1.001 L (1.003-1.030) Urine Protein <15 mg/dl (Negative) mg/dL Urine Glucose (UA) Neg (Negative) mg/dL Urine Ketones Neg (Negative) mg/dL Urine Blood Neg (Negative) Urine Nitrite Neg (Negative) Urine Bilirubin Neg (Negative) Urine Urobilinogen < 2.0 (<2.0) mg/dL Ur Leukocyte Esterase Neg (Negative) Urine WBC (Auto) < 1.0 (0.0-6.0) /HPF Urine RBC (Auto) < 1.0 (0.0-6.0) /HPF Urine Sodium mmol/L Urine Chloride (110-250) mmolL Salicylates < 0.3 L (2.8-20.0) mg/dL Urine Opiates Screen Presumptive negative Urine Methadone Screen Presumptive negative Acetaminophen (10.0-30.0) ug/mL Ur Barbiturates Screen Presumptive negative Ur Phencyclidine Scrn Presumptive negative Ur Amphetamines Screen Presumptive negative U Benzodiazepines Scrn Presumptive negative Urine Cocaine Screen Presumptive negative U Marijuana (THC) Screen Presumptive negative Drugs of Abuse Note Disclamer Plasma/Serum Alcohol (0-0.07) % 10/05/17 10/05/17 10/05/17 Range/Units 03:44 03:44 03:44 WBC (4.5-11.0) K/mm3 RBC (3.65-5.03) M/mm3 Hgb (11.8-15.2) gm/dl Hct (35.5-45.6) % MCV (84-94) fl MCH (28-32) pg MCHC (32-34) % RDW (13.2-15.2) % Plt Count (140-440) K/mm3 Baso % (Auto) Add Manual Diff Total Counted Seg Neuts % (Manual) (40.0-70.0) % Band Neutrophils % % Lymphocytes % (Manual) (13.4-35.0) % Reactive Lymphs % (Man) % Monocytes % (Manual) (0.0-7.3) % Eosinophils % (Manual) (0.0-4.3) % Basophils % (Manual) (0.0-1.8) % Metamyelocytes % % Myelocytes % % Promyelocytes % % Blast Cells % % Nucleated RBC % Seg Neutrophils # Man (1.8-7.7) K/mm3 Band Neutrophils # K/mm3 Lymphocytes # (Manual) (1.2-5.4) K/mm3 Abs React Lymphs (Man) K/mm3 Monocytes # (Manual) (0.0-0.8) K/mm3 Eosinophils # (Manual) (0.0-0.4) K/mm3 Basophils # (Manual) (0.0-0.1) K/mm3 Metamyelocytes # K/mm3 Myelocytes # K/mm3 Promyelocytes # K/mm3 Blast Cells # K/mm3 WBC Morphology Hypersegmented Neuts Hyposegmented Neuts Hypogranular Neuts Smudge Cells Toxic Granulation Toxic Vacuolation Dohle Bodies Pelger-Huet Anomaly [place] Rods Platelet Estimate Clumped Platelets Plt Clumps, EDTA Large Platelets Giant Platelets Platelet Satelliting Plt Morphology Comment RBC Morphology Dimorphic RBCs Polychromasia Hypochromasia Poikilocytosis Anisocytosis Microcytosis Macrocytosis Spherocytes Pappenheimer Bodies Sickle Cells Target Cells Tear Drop Cells Ovalocytes Helmet Cells [place] Bodies [place] Rings Lyle Cells Bite Cells Crenated Cell Elliptocytes Acanthocytes (Spur) Rouleaux Hemoglobin C Crystals Schistocytes Malaria parasites Bill Bodies Hem Pathologist Commnt Sodium 119 L* (137-145) mmol/L Potassium 4.2 (3.6-5.0) mmol/L Chloride 78.0 L (98-107) mmol/L Carbon Dioxide 24 (22-30) mmol/L Anion Gap 20 mmol/L BUN 8 L (9-20) mg/dL Creatinine 1.0 (0.8-1.5) mg/dL Estimated GFR > 60 ml/min BUN/Creatinine Ratio 8 % Glucose 87 (75-100) mg/dL Calcium 9.1 (8.4-10.2) mg/dL Urine Color (Yellow) Urine Turbidity (Clear) Urine pH (5.0-7.0) Ur Specific [place] (1.003-1.030) Urine Protein (Negative) mg/dL Urine Glucose (UA) (Negative) mg/dL Urine Ketones (Negative) mg/dL Urine Blood (Negative) Urine Nitrite (Negative) Urine Bilirubin (Negative) Urine Urobilinogen (<2.0) mg/dL Ur Leukocyte Esterase (Negative) Urine WBC (Auto) (0.0-6.0) /HPF Urine RBC (Auto) (0.0-6.0) /HPF Urine Sodium mmol/L Urine Chloride (110-250) mmolL Salicylates (2.8-20.0) mg/dL Urine Opiates Screen Urine Methadone Screen Acetaminophen < 5.0 L (10.0-30.0) ug/mL Ur Barbiturates Screen Ur Phencyclidine Scrn Ur Amphetamines Screen U Benzodiazepines Scrn Urine Cocaine Screen U Marijuana (THC) Screen Drugs of Abuse Note Plasma/Serum Alcohol < 0.01 (0-0.07) % 10/05/17 10/05/17 Range/Units 03:44 Unknown WBC 8.2 (4.5-11.0) K/mm3 RBC 4.62 (3.65-5.03) M/mm3 Hgb 14.7 (11.8-15.2) gm/dl Hct 41.6 (35.5-45.6) % MCV 90 (84-94) fl MCH 32 (28-32) pg MCHC 35 H (32-34) % RDW 13.8 (13.2-15.2) % Plt Count 220 (140-440) K/mm3 Baso % (Auto) Manager [employer] Add Manual Diff Complete Total Counted 100 Seg Neuts % (Manual) 77.0 H (40.0-70.0) % Band Neutrophils % 0 % Lymphocytes % (Manual) 21.0 (13.4-35.0) % Reactive Lymphs % (Man) 0 % Monocytes % (Manual) 2.0 (0.0-7.3) % Eosinophils % (Manual) 0 (0.0-4.3) % Basophils % (Manual) 0 (0.0-1.8) % Metamyelocytes % 0 % Myelocytes % 0 % Promyelocytes % 0 % Blast Cells % 0 % Nucleated RBC % Not Reportable Seg Neutrophils # Man 6.3 (1.8-7.7) K/mm3 Band Neutrophils # 0.0 K/mm3 Lymphocytes # (Manual) 1.7 (1.2-5.4) K/mm3 Abs React Lymphs (Man) 0.0 K/mm3 Monocytes # (Manual) 0.2 (0.0-0.8) K/mm3 Eosinophils # (Manual) 0.0 (0.0-0.4) K/mm3 Basophils # (Manual) 0.0 (0.0-0.1) K/mm3 Metamyelocytes # 0.0 K/mm3 Myelocytes # 0.0 K/mm3 Promyelocytes # 0.0 K/mm3 Blast Cells # 0.0 K/mm3 WBC Morphology Not Reportable Hypersegmented Neuts Not Reportable Hyposegmented Neuts Not Reportable Hypogranular Neuts Not Reportable Smudge Cells Not Reportable Toxic Granulation Not Reportable Toxic Vacuolation Not Reportable Dohle Bodies Not Reportable Pelger-Huet Anomaly Not Reportable [place] Rods Not Reportable Platelet Estimate Consistent w auto Clumped Platelets Not Reportable Plt Clumps, EDTA Not Reportable Large Platelets Not Reportable Giant Platelets Not Reportable Platelet Satelliting Not Reportable Plt Morphology Comment Not Reportable RBC Morphology Not Reportable Dimorphic RBCs Not Reportable Polychromasia Not Reportable Hypochromasia Not Reportable Poikilocytosis Not Reportable Anisocytosis Not Reportable Microcytosis Not Reportable Macrocytosis Not Reportable Spherocytes Not Reportable Pappenheimer Bodies Not Reportable Sickle Cells Not Reportable Target Cells Not Reportable Tear Drop Cells Not Reportable Ovalocytes Not Reportable Helmet Cells Not Reportable [place] Bodies Not Reportable [place] Rings Not Reportable [place] Cells Not Reportable Bite Cells Not Reportable Crenated Cell Not Reportable Elliptocytes Not Reportable Acanthocytes (Spur) Not Reportable Rouleaux Not Reportable Hemoglobin C Crystals Not Reportable Schistocytes Not Reportable Malaria parasites Not Reportable Bill Bodies Not Reportable Hem Pathologist Commnt No Sodium (137-145) mmol/L Potassium (3.6-5.0) mmol/L Chloride (98-107) mmol/L Carbon Dioxide (22-30) mmol/L Anion Gap mmol/L BUN (9-20) mg/dL Creatinine (0.8-1.5) mg/dL Estimated GFR ml/min BUN/Creatinine Ratio % Glucose (75-100) mg/dL Calcium (8.4-10.2) mg/dL Urine Color (Yellow) Urine Turbidity (Clear) Urine pH (5.0-7.0) Ur Specific [place] (1.003-1.030) Urine Protein (Negative) mg/dL Urine Glucose (UA) (Negative) mg/dL Urine Ketones (Negative) mg/dL Urine Blood (Negative) Urine Nitrite (Negative) Urine Bilirubin (Negative) Urine Urobilinogen (<2.0) mg/dL Ur Leukocyte Esterase (Negative) Urine WBC (Auto) (0.0-6.0) /HPF Urine RBC (Auto) (0.0-6.0) /HPF Urine Sodium 10 mmol/L Urine Chloride 10.0 L (110-250) mmolL Salicylates (2.8-20.0) mg/dL Urine Opiates Screen Urine Methadone Screen Acetaminophen (10.0-30.0) ug/mL Ur Barbiturates Screen Ur Phencyclidine Scrn Ur Amphetamines Screen U Benzodiazepines Scrn Urine Cocaine Screen U Marijuana (THC) Screen Drugs of Abuse Note Plasma/Serum Alcohol (0-0.07) % - Medical Decision Making Labs reveal the patient is hyponatremic. 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 Symptoms in the past have been encephalopathy and seizures. Patient received 1 L normal saline prior to my arrival and second liter initiated. Hospitalist informed for admission - Differential Diagnosis encephalopathy, psychosis, schizoaffective disorder Critical Care Time: No Critical care attestation.: If time is entered above; I have spent that time in minutes in the direct care of this critically ill patient, excluding procedure time. ED Disposition Clinical Impression: Hyponatremia, Encephalopathy, Schizoaffective disorder, Psychogenic polydipsia Disposition: OP ADMIT IP TO THIS HOSP Is pt being admited?: Yes Condition: Stable Time of Disposition: 07:09 (Dr Bridges/hosp)
[2017-10-05] MEDS ORDERED: ZOFRAN IV PRN (07:19)
[2017-10-05] MEDS ORDERED: APRESOLINE IV PRN (07:19)
[2017-10-05] MEDS ORDERED: TYLENOL PO PRN (08:00)
[2017-10-05] MEDS ORDERED: NACL 0.9% 1000 ML 1,000 ML IV SCH (08:00)
--- NOTE | 2017-10-05 10:57 | Consultation ---
History of Present Illness - Reason for Consult Consult date: 10/05/17 hyponatremia - History of Present Illness 42-year-old male with a past medical history schizoaffective disorder, psychogenic polydipsia resulting in hyponatremia presents to the hospital via EMS with unspecified complaint. patient is not answering questions. history obtained from chart. lab results showed severe hyponatremia. renal consult was requested for hyponatremia management Past History Past Medical History: No medical history Medications and Allergies Allergies Allergy/AdvReac Type Severity Reaction Status Date / Time No Known Allergies Allergy Verified 09/28/16 20:30 Home Medications Medication Instructions Recorded Confirmed Last Taken Type Haloperidol Decanoate [Haldol 100 mg IM QMONTH 08/06/16 09/28/16 Unknown History Decanoate] Benztropine [Cogentin] 1 mg PO BID #60 tablet 08/09/16 09/28/16 Unknown Rx risperiDONE [RisperDAL] 0.5 mg PO BID #60 tablet 08/09/16 09/28/16 Unknown Rx Active Meds: Active Medications Acetaminophen (Tylenol) 325 mg PO Q6H PRN PRN Reason: Pain, Mild (1-3) Enoxaparin Sodium (Lovenox) 40 mg SUB-Q QDAY@2200 [facility] Hydralazine HCl (Apresoline) 10 mg IV Q4HR PRN PRN Reason: Blood Pressure Sodium Chloride (Nacl 0.9% 1000 Ml) 1,000 mls @ 100 mls/hr IV DIRECT [facility] Ondansetron HCl (Zofran) 4 mg IV Q4H PRN PRN Reason: Nausea And Vomiting Pantoprazole Sodium (Protonix) 40 mg PO QDAY [facility] Review of Systems ROS unobtainable: due to mental status Exam - Vital Signs Vital signs: Vital Signs Temp Pulse Resp BP Pulse Ox 97.9 F 76 18 167/107 97 10/05/17 02:47 10/05/17 02:47 10/05/17 02:47 10/05/17 02:47 10/05/17 02:47 - General Appearance General appearance: well-developed, well-nourished EENT: ATNC, PERRL, mucous membranes moist Neck: Present: neck supple Respiratory: Clear to Ascultation Heart: regular, S1S2 Gastrointestinal: Present: normoactive bowel sounds. Absent: tenderness, distended Integumentary: no rash, warm and dry Neurologic: no focal deficit, no asterixis Musculoskeletal: Present: other (no edema in BLE) Psychiatric: other (answers simple questions) Results - Lab Results 10/05/17 03:44 10/05/17 03:44 Most recent lab results Calcium 9.1 mg/dL (8.4-10.2) 10/05/17 03:44 Urine Sodium 10 mmol/L 10/05/17 Unknown Assessment and Plan - Patient Problems (1) Hyponatremia Current Visit: Yes Status: Acute Plan to address problem: from psychogenic polydipsia, also could be secondary to anti psychotics will order fluid resrtiction 1000 cc a day will check urine osm and sodium, will also order serum osm will monitor Na level Q4H will d/c IVF no indication for hypertonic saline for now (2) Encephalopathy Current Visit: Yes Status: Acute Plan to address problem: possibly due to hyponatremia as above work up per primary team (3) Schizoaffective disorder Current Visit: Yes Status: Acute Plan to address problem: baseline unknown, per primary team
--- NOTE | 2017-10-05 11:20 | History and Physical Report ---
History of Present Illness Date of examination: 10/05/17 Date of admission: 10/05/17 07:17 Chief complaint: AMS History of present illness: Patient is a 42-year-old man with a history of tobacco dependance, schizoaffective disorder, hyponatremia from psychogenic polydipsia resulting in seizures and encephalopathy who presents to [facility] ED via EMS with AMS. History from chart due to AMS. Patient said he is homeless and last year. This is the only thing he communicated to staff. Otherwise although he is alert he would not answer questions. Apparently, in the ED, he became belligerent and started yelling. While in his room he stood up and urinated on the floor and then subsequently went back to sleep. PMH: as hpi PSH: asked but not answered SH: +cig per history, asked but not answered FH: asked but not answered ROS: unable to obtain due to mental status Medications and Allergies Allergies Allergy/AdvReac Type Severity Reaction Status Date / Time No Known Allergies Allergy Verified 09/28/16 20:30 Home Medications Medication Instructions Recorded Confirmed Last Taken Type Haloperidol Decanoate [Haldol 100 mg IM QMONTH 08/06/16 09/28/16 Unknown History Decanoate] Benztropine [Cogentin] 1 mg PO BID #60 tablet 08/09/16 09/28/16 Unknown Rx risperiDONE [RisperDAL] 0.5 mg PO BID #60 tablet 08/09/16 09/28/16 Unknown Rx Active Meds: Active Medications Acetaminophen (Tylenol) 325 mg PO Q6H PRN PRN Reason: Pain, Mild (1-3) Enoxaparin Sodium (Lovenox) 40 mg SUB-Q QDAY@2200 [facility] Hydralazine HCl (Apresoline) 10 mg IV Q4HR PRN PRN Reason: Blood Pressure Ondansetron HCl (Zofran) 4 mg IV Q4H PRN PRN Reason: Nausea And Vomiting Pantoprazole Sodium (Protonix) 40 mg PO QDAY [facility] Exam - Physical Exam Narrative exam: GEN: WDWN, unkempt, NAD, AWAKE, ALERT, confused, not answering questions, really doesn't want to be touched HEENT: NCAT, OP Clear NECK: supple, no adenopathy, no thyromegaly, no JVD CVS/HEART: RRR, NORMAL S1S2, pulses present bilaterally CHEST/LUNGS: CTA B, Symmetrical chest expansion, good air entry bilaterally GI/Abdomen: soft, NTND, good bowel sounds, no guarding or rebound /Bladder: no suprapubic tenderness, no CVA or paraspinal tenderness EXT/Skin: no c/c/e, no obvious rash MSK: FROM x 4 Neuro: CN 2-12 grossly intact, doesn't follow commands Psych: confused - Constitutional Vitals: Temp Pulse Resp BP Pulse Ox 98.4 F 74 22 149/91 95 10/05/17 08:39 10/05/17 08:39 10/05/17 08:39 10/05/17 08:39 10/05/17 08:39 Results - Labs CBC & Chem 7: 10/05/17 03:44 10/05/17 03:44 Labs: Abnormal lab results 10/05/17 10/05/17 10/05/17 Range/Units 03:10 03:44 03:44 MCHC (32-34) % Seg Neuts % (Manual) (40.0-70.0) % Sodium (137-145) mmol/L Chloride (98-107) mmol/L BUN (9-20) mg/dL Ur Specific [place] 1.001 L (1.003-1.030) Urine Chloride (110-250) mmolL Salicylates < 0.3 L (2.8-20.0) mg/dL Acetaminophen < 5.0 L (10.0-30.0) ug/mL 10/05/17 10/05/17 10/05/17 Range/Units 03:44 03:44 Unknown MCHC 35 H (32-34) % Seg Neuts % (Manual) 77.0 H (40.0-70.0) % Sodium 119 L* (137-145) mmol/L Chloride 78.0 L (98-107) mmol/L BUN 8 L (9-20) mg/dL Ur Specific [place] (1.003-1.030) Urine Chloride 10.0 L (110-250) mmolL Salicylates (2.8-20.0) mg/dL Acetaminophen (10.0-30.0) ug/mL Assessment and Plan Patient is a 42-year-old man with a history of tobacco dependance, schizoaffective disorder, hyponatremia from psychogenic polydipsia resulting in seizures and encephalopathy who presents to [facility] ED via EMS with AMS. History from chart due to AMS. Patient said he is homeless and last year. This is the only thing he communicated to staff. Otherwise although he is alert he would not answer questions. Apparently, in the ED, he became belligerent and started yelling. While in his room he stood up and urinated on the floor and then subsequently went back to sleep. -Acute metabolic encephalopathy from severe hyponatremia: treat the hyponatremia -Severe hyponatremia: consulted Nephrology, treat with saline, follow up on Urine Osmo, am labs -Uncontrolled hypertension: prn antihypertensive -Tobacco dependancy: advised to stop, add nicotine -Schizoaffective disorder: consult Mental health -DVT prophylaxis: sq heparin
[2017-10-05] MEDS: PROTONIX PO SCH (11:40)
[2017-10-05] MEDS: COGENTIN PO SCH ×2 (14:31→22:05)
[2017-10-05] MEDS: RisperDAL PO SCH ×2 (14:31→22:05)
[2017-10-05] MEDS: HABITROL TD SCH (14:32)
[2017-10-05 18:06] LABS: BUN/Creatinine Ratio 9; Blood Urea Nitrogen 7 mg/dL (9-20); Calcium 8.7 mg/dL (8.4-10.2); Hemolysis Index 11
[2017-10-05 18:07] LABS: BUN/Creatinine Ratio 9; Blood Urea Nitrogen 7 mg/dL (9-20); Calcium 8.6 mg/dL (8.4-10.2); Hemolysis Index 5
[2017-10-05] MEDS ORDERED: D5W 1,000 ML IV SCH (20:00)
[2017-10-05] MEDS ORDERED: GEODON IM ONE (21:21)
[2017-10-06 07:12] LABS: Basophils % (Auto) 0.9 % (0.0-1.8); Eosinophils # (Auto) 0.1 K/mm3 (0.0-0.4); Eosinophils % (Auto) 1.5 % (0.0-4.3); Hemoglobin 15.1 gm/dl (11.8-15.2); Lymphocytes # (Auto) 1.8 K/mm3 (1.2-5.4); Lymphocytes % (Auto) 33.1 % (13.4-35.0); Mean Corpuscular HGB Conc 34 % (32-34); Mean Corpuscular Hemoglobin 31 pg (28-32); Mean Corpuscular Volume 91 fl (84-94); Monocytes # (Auto) 0.6 K/mm3 (0.0-0.8); Monocytes % (Auto) 10.4 % (0.0-7.3); Platelet Count 233 K/mm3 (140-440); Red Blood Count 4.85 M/mm3 (3.65-5.03); Red Cell Distribution Width 13.7 % (13.2-15.2)
[2017-10-06 08:08] LABS: BUN/Creatinine Ratio 8; Blood Urea Nitrogen 7 mg/dL (9-20); Hemolysis Index 4
[2017-10-06] MEDS: HEPARIN SUB-Q SCH ×2 (09:16→21:37)
[2017-10-06] MEDS: HABITROL TD SCH (09:17)
[2017-10-06] MEDS: RisperDAL PO SCH (09:17)
[2017-10-06] MEDS: COGENTIN PO SCH (09:17)
[2017-10-06] MEDS: PROTONIX PO SCH (09:18)
[2017-10-06] MEDS: D5W 1,000 ML IV SCH ×2 (09:25→23:38)
--- NOTE | 2017-10-06 10:08 | Consultation ---
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 Today the patient is uncooperative and confused during the assessment. His answers to questions were not logical. On admission, the patient's NA was 119. This patient is not a good historian at this time. Medications and Allergies Allergies Allergy/AdvReac Type Severity Reaction Status Date / Time No Known Allergies Allergy Verified 09/28/16 20:30 Home Medications Medication Instructions Recorded Confirmed Last Taken Type Haloperidol Decanoate [Haldol 100 mg IM QMONTH 08/06/16 09/28/16 Unknown History Decanoate] Benztropine [Cogentin] 1 mg PO BID #60 tablet 08/09/16 09/28/16 Unknown Rx risperiDONE [RisperDAL] 0.5 mg PO BID #60 tablet 08/09/16 09/28/16 Unknown Rx Active Meds: Active Medications Acetaminophen (Tylenol) 325 mg PO Q6H PRN PRN Reason: Pain, Mild (1-3) Benztropine Mesylate (Cogentin) 1 mg PO BID [facility] Last Admin: 10/06/17 09:17 Dose: 1 mg Heparin Sodium (Porcine) (Heparin) 5,000 unit SUB-Q Q12HR [facility] Last Admin: 10/06/17 09:16 Dose: 5,000 unit Hydralazine HCl (Apresoline) 10 mg IV Q4HR PRN PRN Reason: Blood Pressure Dextrose (D5w) 1,000 mls @ 100 mls/hr IV DIRECT [facility] Last Admin: 10/06/17 09:25 Dose: 100 mls/hr Nicotine (Habitrol) 21 mg TD QDAY [facility] Last Admin: 10/06/17 09:17 Dose: Not Given Ondansetron HCl (Zofran) 4 mg IV Q4H PRN PRN Reason: Nausea And Vomiting Pantoprazole Sodium (Protonix) 40 mg PO QDAY [facility] Last Admin: 10/06/17 09:18 Dose: 40 mg Risperidone (Risperdal) 0.5 mg PO BID [facility] Last Admin: 10/06/17 09:17 Dose: 0.5 mg Past psychiatric history - Past Medical History Past Medical History: other (Hyponatremia) Past Surgical History: Other (Unable to obtain) - past Psychiatric treatment and history psychiatric treatment history: Unable to obtain a psy hx and a fam psy hx. - Social History Social history: other (Unable to obtain) Mental Status Exam - Vital signs Last Vital Signs Temp 98.8 F 10/06/17 07:01 Pulse 93 H 10/06/17 07:01 Resp 16 10/06/17 07:01 BP 158/99 10/06/17 07:01 Pulse Ox 94 10/06/17 07:01 - Exam Narrative exam: MSE: Appearance: uncooperative Behavior: regular eye contact Speech: loud tone Mood: unable to assess Affect: flat Thought Process: tangential Thought Content: no gestures of SI/HI's and AVH's Motor Activity: lying in bed Cognition: confused Insight: poor Judgment: poor Results Result Diagrams: 10/06/17 04:58 10/06/17 17:56 Abnormal lab results 10/05/17 10/05/17 10/05/17 Range/Units 17:16 17:16 20:26 [place] % (Auto) (0.0-7.3) % Sodium 130 L D (137-145) mmol/L Chloride (98-107) mmol/L Carbon Dioxide 21 L (22-30) mmol/L BUN 7 L 7 L (9-20) mg/dL Glucose 101 H 105 H (75-100) mg/dL 10/05/17 10/06/17 10/06/17 Range/Units 23:52 01:19 04:58 [place] % (Auto) 10.4 H (0.0-7.3) % Sodium 134 L 136 L (137-145) mmol/L Chloride (98-107) mmol/L Carbon Dioxide (22-30) mmol/L BUN (9-20) mg/dL Glucose (75-100) mg/dL 10/06/17 Range/Units 04:58 [place] % (Auto) (0.0-7.3) % Sodium (137-145) mmol/L Chloride 107.4 H (98-107) mmol/L Carbon Dioxide 21 L (22-30) mmol/L BUN 7 L (9-20) mg/dL Glucose 66 L (75-100) mg/dL All other labs normal. Assessment and Plan Assessment and plan: Impression: Today the patient is uncooperative and confused during the assessment. The patient patient's NA on admission was 119. His NA has been trending up and down since his admission. Medical: Acute Metabolic Encephalopathy from severe hyponatremia Recommendation/Plan: D/C'd current home psy medications. Will start psy medications once the patient's labs normalize. Gather collateral information to determine proper treatment and dispo. Start Haldol 2 mg PO Q6hrs PRN for acute agitation. Recommend delirium precautions below: 1. Frequently reorient patient and involve him/her in their care (simple explanations of procedures, tests, medications). 2. Lights on and shades open during daytime hours. 3. Try to avoid unnecessary interruptions to sleep during nighttime hours. 4. Obtain glasses, hearing aids from home if patient uses these at baseline. 5. Avoid medications that may exacerbate delirium (especially narcotics, barbiturates, ambien, lunesta, benzos, and medications with excessive anticholinergic properties). 6. Recommend 1:1 sitter.
--- NOTE | 2017-10-06 11:28 | Progress Note ---
Assessment and Plan Assessment and plan: Acute metabolic encephalopathy from severe hyponatremia. Cont. cookie treat the hyponatremia Severe hyponatremia. Etiology from psychogenic polydipsia, also could be secondary to anti psychotics. Cont. fluid resrtiction 1000 cc a day. Check urine osm and sodium, will also order serum osm. Cont. to monitor Na level Q4H Uncontrolled hypertension: prn antihypertensive Tobacco dependency. Pt. was advised to stop. Schizoaffective disorder. Mental health following. Start Haldol 2 mg PO Q6hrs PRN for acute agitation. 1:1 sitter. DVT prophylaxis: sq heparin History Interval history: Pt. is verbally abusive and agitated Hospitalist Physical - Constitutional Vitals: Temp Pulse Resp BP Pulse Ox 98.8 F 93 H 16 158/99 94 10/06/17 07:01 10/06/17 07:01 10/06/17 07:01 10/06/17 07:01 10/06/17 07:01 General appearance: Present: no acute distress, well-nourished - EENT Eyes: Present: PERRL, EOM intact ENT: hearing intact, clear oral mucosa, dentition normal - Neck Neck: Present: supple, normal ROM - Respiratory Respiratory effort: normal Respiratory: bilateral: CTA - Cardiovascular Rhythm: regular Heart Sounds: Present: S1 & S2. Absent: gallop, rub - Extremities Extremities: no ischemia, No edema, Full ROM - Abdominal General gastrointestinal: soft, non-tender, non-distended, normal bowel sounds - Integumentary Integumentary: Present: clear, warm, dry - Neurologic Neurologic: CNII-XII intact, moves all extremities Results - Labs CBC & Chem 7: 10/06/17 04:58 10/06/17 09:00 Labs: Laboratory Last Values WBC 5.4 K/mm3 (4.5-11.0) 10/06/17 04:58 RBC 4.85 M/mm3 (3.65-5.03) 10/06/17 04:58 Hgb 15.1 gm/dl (11.8-15.2) 10/06/17 04:58 Hct 44.0 % (35.5-45.6) 10/06/17 04:58 MCV 91 fl (84-94) 10/06/17 04:58 MCH 31 pg (28-32) 10/06/17 04:58 MCHC 34 % (32-34) 10/06/17 04:58 RDW 13.7 % (13.2-15.2) 10/06/17 04:58 Plt Count 233 K/mm3 (140-440) 10/06/17 04:58 Lymph % (Auto) 33.1 % (13.4-35.0) 10/06/17 04:58 [place] % (Auto) 10.4 % (0.0-7.3) H 10/06/17 04:58 Eos % (Auto) 1.5 % (0.0-4.3) 10/06/17 04:58 Baso % (Auto) 0.9 % (0.0-1.8) 10/06/17 04:58 Lymph # 1.8 K/mm3 (1.2-5.4) 10/06/17 04:58 [place] # 0.6 K/mm3 (0.0-0.8) 10/06/17 04:58 Eos # 0.1 K/mm3 (0.0-0.4) 10/06/17 04:58 Baso # 0.0 K/mm3 (0.0-0.1) 10/06/17 04:58 Add Manual Diff Complete 10/05/17 03:44 Total Counted 100 10/05/17 03:44 Seg Neutrophils % 54.1 % (40.0-70.0) 10/06/17 04:58 Seg Neuts % (Manual) 77.0 % (40.0-70.0) H 10/05/17 03:44 Band Neutrophils % 0 % 10/05/17 03:44 Lymphocytes % (Manual) 21.0 % (13.4-35.0) 10/05/17 03:44 Reactive Lymphs % (Man) 0 % 10/05/17 03:44 Monocytes % (Manual) 2.0 % (0.0-7.3) 10/05/17 03:44 Eosinophils % (Manual) 0 % (0.0-4.3) 10/05/17 03:44 Basophils % (Manual) 0 % (0.0-1.8) 10/05/17 03:44 Metamyelocytes % 0 % 10/05/17 03:44 Myelocytes % 0 % 10/05/17 03:44 Promyelocytes % 0 % 10/05/17 03:44 Blast Cells % 0 % 10/05/17 03:44 Nucleated RBC % Not Reportable 10/05/17 03:44 Seg Neutrophils # 2.9 K/mm3 (1.8-7.7) 10/06/17 04:58 Seg Neutrophils # Man 6.3 K/mm3 (1.8-7.7) 10/05/17 03:44 Band Neutrophils # 0.0 K/mm3 10/05/17 03:44 Lymphocytes # (Manual) 1.7 K/mm3 (1.2-5.4) 10/05/17 03:44 Abs React Lymphs (Man) 0.0 K/mm3 10/05/17 03:44 Monocytes # (Manual) 0.2 K/mm3 (0.0-0.8) 10/05/17 03:44 Eosinophils # (Manual) 0.0 K/mm3 (0.0-0.4) 10/05/17 03:44 Basophils # (Manual) 0.0 K/mm3 (0.0-0.1) 10/05/17 03:44 Metamyelocytes # 0.0 K/mm3 10/05/17 03:44 Myelocytes # 0.0 K/mm3 10/05/17 03:44 Promyelocytes # 0.0 K/mm3 10/05/17 03:44 Blast Cells # 0.0 K/mm3 10/05/17 03:44 WBC Morphology Not Reportable 10/05/17 03:44 Hypersegmented Neuts Not Reportable 10/05/17 03:44 Hyposegmented Neuts Not Reportable 10/05/17 03:44 Hypogranular Neuts Not Reportable 10/05/17 03:44 Smudge Cells Not Reportable 10/05/17 03:44 Toxic Granulation Not Reportable 10/05/17 03:44 Toxic Vacuolation Not Reportable 10/05/17 03:44 Dohle Bodies Not Reportable 10/05/17 03:44 Pelger-Huet Anomaly Not Reportable 10/05/17 03:44 [place] Rods Not Reportable 10/05/17 03:44 Platelet Estimate Consistent w auto 10/05/17 03:44 Clumped Platelets Not Reportable 10/05/17 03:44 Plt Clumps, EDTA Not Reportable 10/05/17 03:44 Large Platelets Not Reportable 10/05/17 03:44 Giant Platelets Not Reportable 10/05/17 03:44 Platelet Satelliting Not Reportable 10/05/17 03:44 Plt Morphology Comment Not Reportable 10/05/17 03:44 RBC Morphology Not Reportable 10/05/17 03:44 Dimorphic RBCs Not Reportable 10/05/17 03:44 Polychromasia Not Reportable 10/05/17 03:44 Hypochromasia Not Reportable 10/05/17 03:44 Poikilocytosis Not Reportable 10/05/17 03:44 Anisocytosis Not Reportable 10/05/17 03:44 Microcytosis Not Reportable 10/05/17 03:44 Macrocytosis Not Reportable 10/05/17 03:44 Spherocytes Not Reportable 10/05/17 03:44 Pappenheimer Bodies Not Reportable 10/05/17 03:44 Sickle Cells Not Reportable 10/05/17 03:44 Target Cells Not Reportable 10/05/17 03:44 Tear Drop Cells Not Reportable 10/05/17 03:44 Ovalocytes Not Reportable 10/05/17 03:44 Helmet Cells Not Reportable 10/05/17 03:44 Coombs-[place] Bodies Not Reportable 10/05/17 03:44 [place] Rings Not Reportable 10/05/17 03:44 [place] Cells Not Reportable 10/05/17 03:44 Bite Cells Not Reportable 10/05/17 03:44 Crenated Cell Not Reportable 10/05/17 03:44 Elliptocytes Not Reportable 10/05/17 03:44 Acanthocytes (Spur) Not Reportable 10/05/17 03:44 Rouleaux Not Reportable 10/05/17 03:44 Hemoglobin C Crystals Not Reportable 10/05/17 03:44 Schistocytes Not Reportable 10/05/17 03:44 Malaria parasites Not Reportable 10/05/17 03:44 Bill Bodies Not Reportable 10/05/17 03:44 Hem Pathologist Commnt No 10/05/17 03:44 Sodium 139 mmol/L (137-145) 10/06/17 09:00 Potassium 3.6 mmol/L (3.6-5.0) 10/06/17 04:58 Chloride 107.4 mmol/L (98-107) H 10/06/17 04:58 Carbon Dioxide 21 mmol/L (22-30) L 10/06/17 04:58 Anion Gap 17 mmol/L 10/06/17 04:58 BUN 7 mg/dL (9-20) L 10/06/17 04:58 Creatinine 0.9 mg/dL (0.8-1.5) 10/06/17 04:58 Estimated GFR > 60 ml/min 10/06/17 04:58 BUN/Creatinine Ratio 8 % 10/06/17 04:58 Glucose 66 mg/dL (75-100) L 10/06/17 04:58 Osmolality 295 Mosm/kg 10/05/17 17:21 Calcium 9.0 mg/dL (8.4-10.2) 10/06/17 04:58 Phosphorus 3.80 mg/dL (2.5-4.5) 10/06/17 04:58 Urine Color Straw (Yellow) 10/05/17 03:10 Urine Turbidity Clear (Clear) 10/05/17 03:10 Urine pH 6.0 (5.0-7.0) 10/05/17 03:10 Ur Specific [place] 1.001 (1.003-1.030) L 10/05/17 03:10 Urine Protein <15 mg/dl mg/dL (Negative) 10/05/17 03:10 Urine Glucose (UA) Neg mg/dL (Negative) 10/05/17 03:10 Urine Ketones Neg mg/dL (Negative) 10/05/17 03:10 Urine Blood Neg (Negative) 10/05/17 03:10 Urine Nitrite Neg (Negative) 10/05/17 03:10 Urine Bilirubin Neg (Negative) 10/05/17 03:10 Urine Urobilinogen < 2.0 mg/dL (<2.0) 10/05/17 03:10 Ur Leukocyte Esterase Neg (Negative) 10/05/17 03:10 Urine WBC (Auto) < 1.0 /HPF (0.0-6.0) 10/05/17 03:10 Urine RBC (Auto) < 1.0 /HPF (0.0-6.0) 10/05/17 03:10 Urine Osmolality 46 Mosm/kg 10/05/17 Unknown Urine Sodium 10 mmol/L 10/05/17 Unknown Urine Chloride 10.0 mmolL (110-250) L 10/05/17 Unknown Salicylates < 0.3 mg/dL (2.8-20.0) L 10/05/17 03:44 Urine Opiates Screen Presumptive negative 10/05/17 03:30 Urine Methadone Screen Presumptive negative 10/05/17 03:30 Acetaminophen < 5.0 ug/mL (10.0-30.0) L 10/05/17 03:44 Ur Barbiturates Screen Presumptive negative 10/05/17 03:30 Ur Phencyclidine Scrn Presumptive negative 10/05/17 03:30 Ur Amphetamines Screen Presumptive negative 10/05/17 03:30 U Benzodiazepines Scrn Presumptive negative 10/05/17 03:30 Urine Cocaine Screen Presumptive negative 10/05/17 03:30 U Marijuana (THC) Screen Presumptive negative 10/05/17 03:30 Drugs of Abuse Note Disclamer 10/05/17 03:30 Plasma/Serum Alcohol < 0.01 % (0-0.07) 10/05/17 03:44
--- NOTE | 2017-10-06 11:37 | Progress Note ---
Assessment and Plan - Patient Problems (1) Hyponatremia Current Visit: Yes Status: Acute Plan to address problem: Hyponatremia secondary to Pscyhogenic polydipsia Admission serum sodium was 119, most recent serum sodium level noted to be 141 at 12:00 noon today Will need to avoid rapid correction of sodium to avoid [place] Myelinolysis in this patient Therefore our goal sodium level for today will be 129 We have started patient on D5W@ 100 ml/hr this morning, will increase to 125 ml/hr and will adjust fluids as needed Goal sodium level for tomorrow will be 135 Discontinue fluid restriction for now Continue serial sodium level checks every 4 hours (2) Schizoaffective disorder Current Visit: Yes Status: Acute Plan to address problem: On Haldol 2 mg PO Q6hrs PRN for acute agitation. 1:1 sitter. As per Mental Health team and Attending (3) Hypertension Current Visit: Yes Status: Acute Plan to address problem: Monitor. May need anti-hypertensive agents. Subjective Date of service: 10/06/17 Principal diagnosis: Hyponatremia Interval history: Patient transferred to room 362. Sitter in hallway. Patient awake and alert but make erroneous statements. Patient states he is not human but was derived from [place]. Patient states he is Lena and is not of this earth. Patient states he is well and that there is nothing wrong with him. Patient reports he has no reason to be hospitalized. Patient states he is healthy and does not need any treatments. Objective - Vital Signs Vital signs: Vital Signs - 12hr 10/06/17 10/06/17 10/06/17 00:31 04:04 07:01 Temperature 98.8 F 98.5 F 98.8 F Pulse Rate 66 87 93 H Respiratory 18 17 16 Rate Blood Pressure 163/101 146/97 158/99 O2 Sat by Pulse 95 94 94 Oximetry - General Appearance General appearance: well-developed, appears stated age, fatigue EENT: ATNC, PERRL, hearing intact, vision intact Neck: no JVD, supple Respiratory: Present: Clear to Ascultation Cardiology: regular, S1S2 Gastrointestinal: normoactive bowel sounds Integumentary: warm and dry Neurologic: other (Awake and alert. Not able to reason logically.) - Lab 10/06/17 04:58 10/06/17 12:00 Most recent lab results Calcium 9.0 mg/dL (8.4-10.2) 10/06/17 04:58 Phosphorus 3.80 mg/dL (2.5-4.5) 10/06/17 04:58 Urine Sodium 10 mmol/L 10/05/17 Unknown
[2017-10-06] MEDS: HALDOL PO PRN ×3 (12:53→23:45)
[2017-10-06] MEDS ORDERED: LOVENOX SUB-Q SCH (22:00)
[2017-10-07 06:47] LABS: Basophils # (Auto) 0.1 K/mm3 (0.0-0.1); Basophils % (Auto) 1.2 % (0.0-1.8); Eosinophils # (Auto) 0.1 K/mm3 (0.0-0.4); Eosinophils % (Auto) 2.4 % (0.0-4.3); Hematocrit 44.5 % (35.5-45.6); Hemoglobin 14.8 gm/dl (11.8-15.2); Lymphocytes # (Auto) 1.4 K/mm3 (1.2-5.4); Lymphocytes % (Auto) 26.5 % (13.4-35.0); Mean Corpuscular HGB Conc 33 % (32-34); Mean Corpuscular Hemoglobin 31 pg (28-32); Mean Corpuscular Volume 92 fl (84-94); Monocytes # (Auto) 0.5 K/mm3 (0.0-0.8); Monocytes % (Auto) 10.2 % (0.0-7.3); Platelet Count 201 K/mm3 (140-440); Red Blood Count 4.82 M/mm3 (3.65-5.03); Red Cell Distribution Width 13.6 % (13.2-15.2)
[2017-10-07 06:58] LABS: BUN/Creatinine Ratio 10; Blood Urea Nitrogen 10 mg/dL (9-20); Calcium 8.6 mg/dL (8.4-10.2); Hemolysis Index 5
--- NOTE | 2017-10-07 10:14 | Progress Note ---
Assessment and Plan Assessment and plan: Acute metabolic encephalopathy from severe hyponatremia. Cont. to treat the hyponatremia Severe hyponatremia. Resolved. Etiology from psychogenic polydipsia, also could be secondary to anti psychotics. Cont. fluid resrtiction 1000 cc a day. Check urine osm and sodium, will also order serum osm. Cont. to monitor Na level Uncontrolled hypertension: prn antihypertensive Tobacco dependency. Pt. was advised to stop. Schizoaffective disorder. Mental health following. Started Haldol 2 mg PO Q6hrs PRN for acute agitation. 1:1 sitter. DVT prophylaxis: sq heparin History Interval history: Pt. is more calm today Hospitalist Physical - Constitutional Vitals: Temp Pulse Resp BP Pulse Ox 98.3 F 93 H 20 159/110 96 10/07/17 08:24 10/07/17 08:24 10/07/17 08:24 10/07/17 08:24 10/07/17 08:24 General appearance: Present: no acute distress, well-nourished - EENT Eyes: Present: PERRL, EOM intact ENT: hearing intact, clear oral mucosa, dentition normal - Neck Neck: Present: supple, normal ROM - Respiratory Respiratory effort: normal Respiratory: bilateral: CTA - Cardiovascular Rhythm: regular Heart Sounds: Present: S1 & S2. Absent: gallop, rub - Extremities Extremities: no ischemia, No edema, Full ROM - Abdominal General gastrointestinal: soft, non-tender, non-distended, normal bowel sounds - Integumentary Integumentary: Present: clear, warm, dry - Neurologic Neurologic: CNII-XII intact, moves all extremities Results - Labs CBC & Chem 7: 10/07/17 06:19 10/07/17 06:19 Labs: Laboratory Last Values WBC 5.2 K/mm3 (4.5-11.0) 10/07/17 06:19 RBC 4.82 M/mm3 (3.65-5.03) 10/07/17 06:19 Hgb 14.8 gm/dl (11.8-15.2) 10/07/17 06:19 Hct 44.5 % (35.5-45.6) 10/07/17 06:19 MCV 92 fl (84-94) 10/07/17 06:19 MCH 31 pg (28-32) 10/07/17 06:19 MCHC 33 % (32-34) 10/07/17 06:19 RDW 13.6 % (13.2-15.2) 10/07/17 06:19 Plt Count 201 K/mm3 (140-440) 10/07/17 06:19 Lymph % (Auto) 26.5 % (13.4-35.0) 10/07/17 06:19 [place] % (Auto) 10.2 % (0.0-7.3) H 10/07/17 06:19 Eos % (Auto) 2.4 % (0.0-4.3) 10/07/17 06:19 Baso % (Auto) 1.2 % (0.0-1.8) 10/07/17 06:19 Lymph # 1.4 K/mm3 (1.2-5.4) 10/07/17 06:19 [place] # 0.5 K/mm3 (0.0-0.8) 10/07/17 06:19 Eos # 0.1 K/mm3 (0.0-0.4) 10/07/17 06:19 Baso # 0.1 K/mm3 (0.0-0.1) 10/07/17 06:19 Add Manual Diff Complete 10/05/17 03:44 Total Counted 100 10/05/17 03:44 Seg Neutrophils % 59.7 % (40.0-70.0) 10/07/17 06:19 Seg Neuts % (Manual) 77.0 % (40.0-70.0) H 10/05/17 03:44 Band Neutrophils % 0 % 10/05/17 03:44 Lymphocytes % (Manual) 21.0 % (13.4-35.0) 10/05/17 03:44 Reactive Lymphs % (Man) 0 % 10/05/17 03:44 Monocytes % (Manual) 2.0 % (0.0-7.3) 10/05/17 03:44 Eosinophils % (Manual) 0 % (0.0-4.3) 10/05/17 03:44 Basophils % (Manual) 0 % (0.0-1.8) 10/05/17 03:44 Metamyelocytes % 0 % 10/05/17 03:44 Myelocytes % 0 % 10/05/17 03:44 Promyelocytes % 0 % 10/05/17 03:44 Blast Cells % 0 % 10/05/17 03:44 Nucleated RBC % Not Reportable 10/05/17 03:44 Seg Neutrophils # 3.1 K/mm3 (1.8-7.7) 10/07/17 06:19 Seg Neutrophils # Man 6.3 K/mm3 (1.8-7.7) 10/05/17 03:44 Band Neutrophils # 0.0 K/mm3 10/05/17 03:44 Lymphocytes # (Manual) 1.7 K/mm3 (1.2-5.4) 10/05/17 03:44 Abs React Lymphs (Man) 0.0 K/mm3 10/05/17 03:44 Monocytes # (Manual) 0.2 K/mm3 (0.0-0.8) 10/05/17 03:44 Eosinophils # (Manual) 0.0 K/mm3 (0.0-0.4) 10/05/17 03:44 Basophils # (Manual) 0.0 K/mm3 (0.0-0.1) 10/05/17 03:44 Metamyelocytes # 0.0 K/mm3 10/05/17 03:44 Myelocytes # 0.0 K/mm3 10/05/17 03:44 Promyelocytes # 0.0 K/mm3 10/05/17 03:44 Blast Cells # 0.0 K/mm3 10/05/17 03:44 WBC Morphology Not Reportable 10/05/17 03:44 Hypersegmented Neuts Not Reportable 10/05/17 03:44 Hyposegmented Neuts Not Reportable 10/05/17 03:44 Hypogranular Neuts Not Reportable 10/05/17 03:44 Smudge Cells Not Reportable 10/05/17 03:44 Toxic Granulation Not Reportable 10/05/17 03:44 Toxic Vacuolation Not Reportable 10/05/17 03:44 Dohle Bodies Not Reportable 10/05/17 03:44 Pelger-Huet Anomaly Not Reportable 10/05/17 03:44 [place] Rods Not Reportable 10/05/17 03:44 Platelet Estimate Consistent w auto 10/05/17 03:44 Clumped Platelets Not Reportable 10/05/17 03:44 Plt Clumps, EDTA Not Reportable 10/05/17 03:44 Large Platelets Not Reportable 10/05/17 03:44 Giant Platelets Not Reportable 10/05/17 03:44 Platelet Satelliting Not Reportable 10/05/17 03:44 Plt Morphology Comment Not Reportable 10/05/17 03:44 RBC Morphology Not Reportable 10/05/17 03:44 Dimorphic RBCs Not Reportable 10/05/17 03:44 Polychromasia Not Reportable 10/05/17 03:44 Hypochromasia Not Reportable 10/05/17 03:44 Poikilocytosis Not Reportable 10/05/17 03:44 Anisocytosis Not Reportable 10/05/17 03:44 Microcytosis Not Reportable 10/05/17 03:44 Macrocytosis Not Reportable 10/05/17 03:44 Spherocytes Not Reportable 10/05/17 03:44 Pappenheimer Bodies Not Reportable 10/05/17 03:44 Sickle Cells Not Reportable 10/05/17 03:44 Target Cells Not Reportable 10/05/17 03:44 Tear Drop Cells Not Reportable 10/05/17 03:44 Ovalocytes Not Reportable 10/05/17 03:44 Helmet Cells Not Reportable 10/05/17 03:44 Coombs-Stollings Bodies Not Reportable 10/05/17 03:44 [place] Rings Not Reportable 10/05/17 03:44 [place] Cells Not Reportable 10/05/17 03:44 Bite Cells Not Reportable 10/05/17 03:44 Crenated Cell Not Reportable 10/05/17 03:44 Elliptocytes Not Reportable 10/05/17 03:44 Acanthocytes (Spur) Not Reportable 10/05/17 03:44 Rouleaux Not Reportable 10/05/17 03:44 Hemoglobin C Crystals Not Reportable 10/05/17 03:44 Schistocytes Not Reportable 10/05/17 03:44 Malaria parasites Not Reportable 10/05/17 03:44 Bill Bodies Not Reportable 10/05/17 03:44 Hem Pathologist Commnt No 10/05/17 03:44 Sodium 135 mmol/L (137-145) L 10/07/17 06:19 Potassium 4.0 mmol/L (3.6-5.0) 03/07/18 06:19 Chloride 101.4 mmol/L (98-107) 10/07/17 06:19 Carbon Dioxide 22 mmol/L (22-30) 10/07/17 06:19 Anion Gap 16 mmol/L 10/07/17 06:19 BUN 10 mg/dL (9-20) 10/07/17 06:19 Creatinine 1.0 mg/dL (0.8-1.5) 10/07/17 06:19 Estimated GFR > 60 ml/min 10/07/17 06:19 BUN/Creatinine Ratio 10 % 10/07/17 06:19 Glucose 82 mg/dL (75-100) 10/07/17 06:19 Osmolality 295 Mosm/kg 10/05/17 17:21 Calcium 8.6 mg/dL (8.4-10.2) 10/07/17 06:19 Phosphorus 4.30 mg/dL (2.5-4.5) 10/07/17 06:19 Urine Color Straw (Yellow) 10/05/17 03:10 Urine Turbidity Clear (Clear) 10/05/17 03:10 Urine pH 6.0 (5.0-7.0) 10/05/17 03:10 Ur Specific [place] 1.001 (1.003-1.030) L 10/05/17 03:10 Urine Protein <15 mg/dl mg/dL (Negative) 10/05/17 03:10 Urine Glucose (UA) Neg mg/dL (Negative) 10/05/17 03:10 Urine Ketones Neg mg/dL (Negative) 10/05/17 03:10 Urine Blood Neg (Negative) 10/05/17 03:10 Urine Nitrite Neg (Negative) 10/05/17 03:10 Urine Bilirubin Neg (Negative) 10/05/17 03:10 Urine Urobilinogen < 2.0 mg/dL (<2.0) 10/05/17 03:10 Ur Leukocyte Esterase Neg (Negative) 10/05/17 03:10 Urine WBC (Auto) < 1.0 /HPF (0.0-6.0) 10/05/17 03:10 Urine RBC (Auto) < 1.0 /HPF (0.0-6.0) 10/05/17 03:10 Urine Osmolality 46 Mosm/kg 10/05/17 Unknown Urine Sodium 10 mmol/L 10/05/17 Unknown Urine Chloride 10.0 mmolL (110-250) L 10/05/17 Unknown Salicylates < 0.3 mg/dL (2.8-20.0) L 10/05/17 03:44 Urine Opiates Screen Presumptive negative 10/05/17 03:30 Urine Methadone Screen Presumptive negative 10/05/17 03:30 Acetaminophen < 5.0 ug/mL (10.0-30.0) L 10/05/17 03:44 Ur Barbiturates Screen Presumptive negative 10/05/17 03:30 Ur Phencyclidine Scrn Presumptive negative 10/05/17 03:30 Ur Amphetamines Screen Presumptive negative 10/05/17 03:30 U Benzodiazepines Scrn Presumptive negative 10/05/17 03:30 Urine Cocaine Screen Presumptive negative 10/05/17 03:30 U Marijuana (THC) Screen Presumptive negative 10/05/17 03:30 Drugs of Abuse Note Disclamer 10/05/17 03:30 Plasma/Serum Alcohol < 0.01 % (0-0.07) 10/05/17 03:44
[2017-10-07] MEDS: PROTONIX PO SCH (11:28)
[2017-10-07] MEDS: HEPARIN SUB-Q SCH (11:28)
[2017-10-07] MEDS: HALDOL PO PRN (11:29)
[2017-10-07] MEDS: HABITROL TD SCH (11:34)
--- NOTE | 2017-10-07 12:31 | Progress Note ---
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 May need anti-hypertensive agents. Subjective Date of service: 10/07/17 Principal diagnosis: Hyponatremia Interval history: Patient seen lying in bed. Awake and alert. No family at bedside. Sitter in hallway. Objective - Vital Signs Vital signs: Vital Signs - 12hr 10/07/17 10/07/17 10/07/17 00:53 04:49 08:24 Temperature 98.8 F 98.5 F 98.3 F Pulse Rate 75 78 93 H Respiratory 18 18 20 Rate Blood Pressure 158/97 162/108 159/110 O2 Sat by Pulse 96 96 96 Oximetry - General Appearance General appearance: well-developed, appears stated age EENT: ATNC, PERRL, hearing intact, vision intact Neck: no JVD, supple Respiratory: Present: Clear to Ascultation Cardiology: regular, S1S2 Gastrointestinal: normoactive bowel sounds Integumentary: warm and dry Neurologic: other (awake and alert. Does not reason logically. Psychosis.) Musculoskeletal: other (No edema) Psychiatric: other (Psychosis) - Lab 10/07/17 06:19 10/07/17 06:19 Most recent lab results Calcium 8.6 mg/dL (8.4-10.2) 10/07/17 06:19 Phosphorus 4.30 mg/dL (2.5-4.5) 10/07/17 06:19 Urine Sodium 10 mmol/L 10/05/17 Unknown
[2017-10-08] MEDS: HEPARIN SUB-Q SCH ×3 (00:06→22:24)
[2017-10-08] MEDS: HALDOL PO PRN (01:01)
[2017-10-08 02:33] LABS: BUN/Creatinine Ratio 15; Blood Urea Nitrogen 16 mg/dL (9-20); Calcium 8.7 mg/dL (8.4-10.2); Hemolysis Index 10
[2017-10-08 06:10] LABS: Basophils # (Auto) 0.1 K/mm3 (0.0-0.1); Basophils % (Auto) 1.2 % (0.0-1.8); Eosinophils # (Auto) 0.3 K/mm3 (0.0-0.4); Hematocrit 45.6 % (35.5-45.6); Hemoglobin 15.7 gm/dl (11.8-15.2); Lymphocytes # (Auto) 1.8 K/mm3 (1.2-5.4); Lymphocytes % (Auto) 28.9 % (13.4-35.0); Mean Corpuscular HGB Conc 34 % (32-34); Mean Corpuscular Hemoglobin 31 pg (28-32); Mean Corpuscular Volume 91 fl (84-94); Monocytes # (Auto) 0.6 K/mm3 (0.0-0.8); Monocytes % (Auto) 9.9 % (0.0-7.3); Platelet Count 215 K/mm3 (140-440); Red Blood Count 5.03 M/mm3 (3.65-5.03); Red Cell Distribution Width 14.1 % (13.2-15.2)
[2017-10-08 06:31] LABS: BUN/Creatinine Ratio 14; Blood Urea Nitrogen 17 mg/dL (9-20); Calcium 8.8 mg/dL (8.4-10.2); Hemolysis Index 52
--- NOTE | 2017-10-08 09:27 | Progress Note ---
Assessment and Plan Assessment and plan: Acute metabolic encephalopathy from severe hyponatremia. Cont. to treat the hyponatremia Severe hyponatremia. Resolved. Etiology from psychogenic polydipsia, also could be secondary to anti psychotics. Cont. fluid resrtiction 1000 cc a day. Cont. to monitor Na level Uncontrolled hypertension. prn antihypertensive. We will start labatslol 200mg BID Tobacco dependency. Pt. was advised to stop. Schizoaffective disorder. Mental health following. Started Haldol 2 mg PO Q6hrs PRN for acute agitation. 1:1 sitter. DVT prophylaxis: sq heparin History Interval history: Pt. is more calm today Hospitalist Physical - Constitutional Vitals: Temp Pulse Resp BP Pulse Ox 98.5 F 73 20 140/101 96 10/08/17 07:54 10/08/17 07:54 10/08/17 07:54 10/08/17 07:54 10/08/17 07:54 General appearance: Present: no acute distress, well-nourished - EENT Eyes: Present: PERRL, EOM intact ENT: hearing intact, clear oral mucosa, dentition normal - Neck Neck: Present: supple, normal ROM - Respiratory Respiratory effort: normal Respiratory: bilateral: CTA - Cardiovascular Rhythm: regular Heart Sounds: Present: S1 & S2. Absent: gallop, rub - Extremities Extremities: no ischemia, No edema, Full ROM - Abdominal General gastrointestinal: soft, non-tender, non-distended, normal bowel sounds - Integumentary Integumentary: Present: clear, warm, dry - Neurologic Neurologic: CNII-XII intact, moves all extremities Results - Labs CBC & Chem 7: 10/08/17 05:22 10/08/17 05:22 Labs: Laboratory Last Values WBC 6.2 K/mm3 (4.5-11.0) 10/08/17 05:22 RBC 5.03 M/mm3 (3.65-5.03) 10/08/17 05:22 Hgb 15.7 gm/dl (11.8-15.2) H 10/08/17 05:22 Hct 45.6 % (35.5-45.6) 10/08/17 05:22 MCV 91 fl (84-94) 10/08/17 05:22 MCH 31 pg (28-32) 10/08/17 05:22 MCHC 34 % (32-34) 10/08/17 05:22 RDW 14.1 % (13.2-15.2) 10/08/17 05:22 Plt Count 215 K/mm3 (140-440) 10/08/17 05:22 Lymph % (Auto) 28.9 % (13.4-35.0) 10/08/17 05:22 [place] % (Auto) 9.9 % (0.0-7.3) H 10/08/17 05:22 Eos % (Auto) 5.0 % (0.0-4.3) H 10/08/17 05:22 Baso % (Auto) 1.2 % (0.0-1.8) 10/08/17 05:22 Lymph # 1.8 K/mm3 (1.2-5.4) 10/08/17 05:22 [place] # 0.6 K/mm3 (0.0-0.8) 10/08/17 05:22 Eos # 0.3 K/mm3 (0.0-0.4) 10/08/17 05:22 Baso # 0.1 K/mm3 (0.0-0.1) 10/08/17 05:22 Add Manual Diff Complete 10/05/17 03:44 Total Counted 100 10/05/17 03:44 Seg Neutrophils % 55.0 % (40.0-70.0) 10/08/17 05:22 Seg Neuts % (Manual) 77.0 % (40.0-70.0) H 10/05/17 03:44 Band Neutrophils % 0 % 10/05/17 03:44 Lymphocytes % (Manual) 21.0 % (13.4-35.0) 10/05/17 03:44 Reactive Lymphs % (Man) 0 % 10/05/17 03:44 Monocytes % (Manual) 2.0 % (0.0-7.3) 10/05/17 03:44 Eosinophils % (Manual) 0 % (0.0-4.3) 10/05/17 03:44 Basophils % (Manual) 0 % (0.0-1.8) 10/05/17 03:44 Metamyelocytes % 0 % 10/05/17 03:44 Myelocytes % 0 % 10/05/17 03:44 Promyelocytes % 0 % 10/05/17 03:44 Blast Cells % 0 % 10/05/17 03:44 Nucleated RBC % Not Reportable 10/05/17 03:44 Seg Neutrophils # 3.4 K/mm3 (1.8-7.7) 10/08/17 05:22 Seg Neutrophils # Man 6.3 K/mm3 (1.8-7.7) 10/05/17 03:44 Band Neutrophils # 0.0 K/mm3 10/05/17 03:44 Lymphocytes # (Manual) 1.7 K/mm3 (1.2-5.4) 10/05/17 03:44 Abs React Lymphs (Man) 0.0 K/mm3 10/05/17 03:44 Monocytes # (Manual) 0.2 K/mm3 (0.0-0.8) 10/05/17 03:44 Eosinophils # (Manual) 0.0 K/mm3 (0.0-0.4) 10/05/17 03:44 Basophils # (Manual) 0.0 K/mm3 (0.0-0.1) 10/05/17 03:44 Metamyelocytes # 0.0 K/mm3 10/05/17 03:44 Myelocytes # 0.0 K/mm3 10/05/17 03:44 Promyelocytes # 0.0 K/mm3 10/05/17 03:44 Blast Cells # 0.0 K/mm3 10/05/17 03:44 WBC Morphology Not Reportable 10/05/17 03:44 Hypersegmented Neuts Not Reportable 10/05/17 03:44 Hyposegmented Neuts Not Reportable 10/05/17 03:44 Hypogranular Neuts Not Reportable 10/05/17 03:44 Smudge Cells Not Reportable 10/05/17 03:44 Toxic Granulation Not Reportable 10/05/17 03:44 Toxic Vacuolation Not Reportable 10/05/17 03:44 Dohle Bodies Not Reportable 10/05/17 03:44 Pelger-Huet Anomaly Not Reportable 10/05/17 03:44 [place] Rods Not Reportable 10/05/17 03:44 Platelet Estimate Consistent w auto 10/05/17 03:44 Clumped Platelets Not Reportable 10/05/17 03:44 Plt Clumps, EDTA Not Reportable 10/05/17 03:44 Large Platelets Not Reportable 10/05/17 03:44 Giant Platelets Not Reportable 10/05/17 03:44 Platelet Satelliting Not Reportable 10/05/17 03:44 Plt Morphology Comment Not Reportable 10/05/17 03:44 RBC Morphology Not Reportable 10/05/17 03:44 Dimorphic RBCs Not Reportable 10/05/17 03:44 Polychromasia Not Reportable 10/05/17 03:44 Hypochromasia Not Reportable 10/05/17 03:44 Poikilocytosis Not Reportable 10/05/17 03:44 Anisocytosis Not Reportable 10/05/17 03:44 Microcytosis Not Reportable 10/05/17 03:44 Macrocytosis Not Reportable 10/05/17 03:44 Spherocytes Not Reportable 10/05/17 03:44 Pappenheimer Bodies Not Reportable 10/05/17 03:44 Sickle Cells Not Reportable 10/05/17 03:44 Target Cells Not Reportable 10/05/17 03:44 Tear Drop Cells Not Reportable 10/05/17 03:44 Ovalocytes Not Reportable 10/05/17 03:44 Helmet Cells Not Reportable 10/05/17 03:44 Co[place] Bodies Not Reportable 10/05/17 03:44 Yolyn Rings Not Reportable 10/05/17 03:44 Lyle Cells Not Reportable 10/05/17 03:44 Bite Cells Not Reportable 10/05/17 03:44 Crenated Cell Not Reportable 10/05/17 03:44 Elliptocytes Not Reportable 10/05/17 03:44 Acanthocytes (Spur) Not Reportable 10/05/17 03:44 Rouleaux Not Reportable 10/05/17 03:44 Hemoglobin C Crystals Not Reportable 10/05/17 03:44 Schistocytes Not Reportable 10/05/17 03:44 Malaria parasites Not Reportable 10/05/17 03:44 Bill Bodies Not Reportable 10/05/17 03:44 Hem Pathologist Commnt No 10/05/17 03:44 Sodium 142 mmol/L (137-145) 10/08/17 05:22 Potassium 4.5 mmol/L (3.6-5.0) 10/08/17 05:22 Chloride 102.5 mmol/L (98-107) 10/08/17 05:22 Carbon Dioxide 26 mmol/L (22-30) 10/08/17 05:22 Anion Gap 18 mmol/L 10/08/17 05:22 BUN 17 mg/dL (9-20) 10/08/17 05:22 Creatinine 1.2 mg/dL (0.8-1.5) 10/08/17 05:22 Estimated GFR > 60 ml/min 10/08/17 05:22 BUN/Creatinine Ratio 14 % 10/08/17 05:22 Glucose 78 mg/dL (75-100) 10/08/17 05:22 POC Glucose 80 (70-105) 10/08/17 05:52 Osmolality 295 Mosm/kg 10/05/17 17:21 Calcium 8.8 mg/dL (8.4-10.2) 10/08/17 05:22 Phosphorus 4.40 mg/dL (2.5-4.5) 10/08/17 05:22 Urine Color Straw (Yellow) 10/05/17 03:10 Urine Turbidity Clear (Clear) 10/05/17 03:10 Urine pH 6.0 (5.0-7.0) 10/05/17 03:10 Ur Specific [place] 1.001 (1.003-1.030) L 10/05/17 03:10 Urine Protein <15 mg/dl mg/dL (Negative) 10/05/17 03:10 Urine Glucose (UA) Neg mg/dL (Negative) 10/05/17 03:10 Urine Ketones Neg mg/dL (Negative) 10/05/17 03:10 Urine Blood Neg (Negative) 10/05/17 03:10 Urine Nitrite Neg (Negative) 10/05/17 03:10 Urine Bilirubin Neg (Negative) 10/05/17 03:10 Urine Urobilinogen < 2.0 mg/dL (<2.0) 10/05/17 03:10 Ur Leukocyte Esterase Neg (Negative) 10/05/17 03:10 Urine WBC (Auto) < 1.0 /HPF (0.0-6.0) 10/05/17 03:10 Urine RBC (Auto) < 1.0 /HPF (0.0-6.0) 10/05/17 03:10 Urine Osmolality 46 Mosm/kg 10/05/17 Unknown Urine Sodium 10 mmol/L 10/05/17 Unknown Urine Chloride 10.0 mmolL (110-250) L 10/05/17 Unknown Salicylates < 0.3 mg/dL (2.8-20.0) L 10/05/17 03:44 Urine Opiates Screen Presumptive negative 10/05/17 03:30 Urine Methadone Screen Presumptive negative 10/05/17 03:30 Acetaminophen < 5.0 ug/mL (10.0-30.0) L 10/05/17 03:44 Ur Barbiturates Screen Presumptive negative 10/05/17 03:30 Ur Phencyclidine Scrn Presumptive negative 10/05/17 03:30 Ur Amphetamines Screen Presumptive negative 10/05/17 03:30 U Benzodiazepines Scrn Presumptive negative 10/05/17 03:30 Urine Cocaine Screen Presumptive negative 10/05/17 03:30 U Marijuana (THC) Screen Presumptive negative 10/05/17 03:30 Drugs of Abuse Note Disclamer 10/05/17 03:30 Plasma/Serum Alcohol < 0.01 % (0-0.07) 10/05/17 03:44
[2017-10-08] MEDS: HABITROL TD SCH (10:17)
[2017-10-08] MEDS: PROTONIX PO SCH (10:17)
[2017-10-08] MEDS: NORMODYNE PO SCH ×2 (10:27→22:26)
--- NOTE | 2017-10-08 10:31 | Progress Note ---
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 Today the patient is calm and cooperative during the assessment. He was more lucid and organized with his thoughts today than the previous assessment 2017. He was able to tell me his name, , and his current location. He stated that he is seen by [facility] for outpatient psy services. He stated that he receives the monthly Invega injection for Schizoaffective DO. He denies SI/HI's and AVH's. He denies recreational drug use and alcohol consumption (etoh). He stated that he resides at a personal fdc. Mental Status Exam - Vital signs Last Vital Signs Temp 98.5 F 10/08/17 07:54 Pulse 73 10/08/17 10:27 Resp 20 10/08/17 07:54 BP 140/101 10/08/17 10:27 Pulse Ox 96 10/08/17 07:54 - Exam Narrative exam: MSE: Appearance: calm, cooperative Behavior: regular eye contact Speech: regular rate and tone Mood: "okay" Affect: congruent to mood Thought Process: circumstantial Thought Content: denies SI/ and AVH's, more organized Motor Activity: lying in bed Cognition: A/O x3 Insight: fair Judgment: fair Assessment and Plan Impression: Hx of Schizoaffective DO per the patient. Today the patient is calm and cooperative during the assessment. NA 142. Medical: Acute Metabolic Encephalopathy from severe hyponatremia Recommendation/Plan: The patient is seen by [facility] for outpatient psy services. Per Mal Rosario from [facility], the patient is current with his monthly Invega injection. Continue Haldol 2 mg PO Q6hrs PRN for acute agitation.
--- NOTE | 2017-10-08 11:07 | Progress Note ---
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 On anti-hypertensive agents. Subjective Date of service: 10/08/17 Principal diagnosis: Hyponatremia Interval history: Patient seen sitting up in chair at bedside. Patient asked " Did you notify the [facility]'s of me being kidnapped and held hostage here". No family at bedside. Sitter in hallway. Objective - Vital Signs Vital signs: Vital Signs - 12hr 10/08/17 10/08/17 10/08/17 06:52 07:54 10:27 Temperature 97.8 F 98.5 F Pulse Rate 75 73 73 Respiratory 18 20 Rate Blood Pressure 140/101 140/101 Blood Pressure 145/112 [Right] O2 Sat by Pulse 96 96 Oximetry - General Appearance General appearance: well-developed, appears stated age EENT: ATNC, PERRL, hearing intact, vision intact Neck: no JVD, supple Respiratory: Present: Clear to Ascultation Cardiology: regular, S1S2 Gastrointestinal: normoactive bowel sounds Integumentary: warm and dry Neurologic: other (Awake and alert, does not reason logically) Musculoskeletal: other (No edema) Psychiatric: paranoid ideation - Lab 10/08/17 05:22 10/08/17 05:22 Most recent lab results Calcium 8.8 mg/dL (8.4-10.2) 10/08/17 05:22 Phosphorus 4.40 mg/dL (2.5-4.5) 10/08/17 05:22 Urine Sodium 10 mmol/L 10/05/17 Unknown
[2017-10-09 07:25] LABS: Basophils # (Auto) 0.1 K/mm3 (0.0-0.1); Basophils % (Auto) 0.9 % (0.0-1.8); Eosinophils # (Auto) 0.1 K/mm3 (0.0-0.4); Eosinophils % (Auto) 1.9 % (0.0-4.3); Hematocrit 48.4 % (35.5-45.6); Hemoglobin 15.9 gm/dl (11.8-15.2); Lymphocytes # (Auto) 1.3 K/mm3 (1.2-5.4); Lymphocytes % (Auto) 18.8 % (13.4-35.0); Mean Corpuscular HGB Conc 33 % (32-34); Mean Corpuscular Hemoglobin 30 pg (28-32); Mean Corpuscular Volume 93 fl (84-94); Monocytes # (Auto) 0.5 K/mm3 (0.0-0.8); Monocytes % (Auto) 7.6 % (0.0-7.3); Platelet Count 235 K/mm3 (140-440); Red Blood Count 5.21 M/mm3 (3.65-5.03)
[2017-10-09 07:36] LABS: BUN/Creatinine Ratio 15; Blood Urea Nitrogen 16 mg/dL (9-20); Calcium 9.5 mg/dL (8.4-10.2); Hemolysis Index 19
[2017-10-09] MEDS: NORMODYNE PO SCH ×3 (09:03→13:51)
[2017-10-09] MEDS: PROTONIX PO SCH (09:03)
[2017-10-09] MEDS: HABITROL TD SCH (09:04)
[2017-10-09] MEDS: HEPARIN SUB-Q SCH (09:05)
--- NOTE | 2017-10-09 09:20 | Progress Note ---
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 Resolved Fluid restriction of 1000 ml per day Continue to monitor (2) Schizoaffective disorder Current Visit: Yes Status: Acute Plan to address problem: As per Mental Health team and Attending (3) Hypertension Current Visit: Yes Status: Acute Plan to address problem: will increase labetalol to 300 mg TID will sign off, please reconsult as needed Subjective Date of service: 10/09/17 Principal diagnosis: Hyponatremia Interval history: comfortable Objective - Vital Signs Vital signs: Vital Signs - 12hr 10/08/17 10/08/17 10/09/17 22:00 22:26 07:57 Temperature 97.9 F Pulse Rate 79 70 Respiratory 20 Rate Blood Pressure 141/92 166/109 O2 Sat by Pulse 95 98 Oximetry 10/09/17 09:03 Temperature Pulse Rate Respiratory Rate Blood Pressure 166/109 O2 Sat by Pulse Oximetry - General Appearance General appearance: well-developed, well-nourished EENT: ATNC, PERRL, mucous membranes moist Neck: no JVD Respiratory: Present: Clear to Ascultation. Absent: Rales, Ronchi Cardiology: regular, S1S2 Gastrointestinal: normoactive bowel sounds, no tenderness, no distended Integumentary: no rash, warm and dry Neurologic: no focal deficit, no asterixis Musculoskeletal: other (no edema in BLE) Psychiatric: cooperative - Lab 10/09/17 06:39 10/09/17 06:39 Most recent lab results Calcium 9.5 mg/dL (8.4-10.2) 10/09/17 06:39 Phosphorus 4.00 mg/dL (2.5-4.5) 10/09/17 06:39 Urine Sodium 10 mmol/L 10/05/17 Unknown
--- NOTE | 2017-10-09 10:18 | Discharge Summary ---
Providers - Providers Date of Admission: 10/05/17 07:17 Attending physician: PAOLO NOONAN 10/05/17 07:18 Consult to Physician [CONS] Routine Consulting Provider: ELIZA MONTALVO Reason For Exam: severe hyponatremia, 119, h/o psychogenic polydips Place consult to:: DR. MONTALVO Notified:: DR. MANJARREZ Phone number called:: [phone] Was contact made?: Yes If yes, spoke with:: DR. MANJARREZ Time called:: 09:28 Comment:: ALLIE MACARIO 10/05/17 11:50 Consult to Mental Health [CONS] Routine Reason For Exam: Medication management, Schizoaffective d/o Place consult to:: Odin Lai MD Notified:: WILLIAM Phone number called:: [phone] Was contact made?: Yes If yes, spoke with:: WILLIAM Time called:: 13:06 Comment:: ALLIE NOTIFIED Primary care physician: CINDY CALLEJAS MD Hospitalization Condition: Stable Disposition: DC-30 STILL A PATIENT Exam - Constitutional Vitals: Temp Pulse Resp BP Pulse Ox 97.9 F 70 20 166/109 98 10/09/17 07:57 10/09/17 07:57 10/09/17 07:57 10/09/17 09:03 10/09/17 07:57 Plan Follow up with: PRIMARY MD JÚNIOR [Primary Care Provider] - 3-5 Days
--- NOTE | 2017-10-09 12:44 | Progress Note ---
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 Today the patient is calm and cooperative during the assessment. He was lucid and organized during the interview. He denies SI/HI's and AVH's. Mental Status Exam - Vital signs Last Vital Signs Temp 97.9 F 10/09/17 07:57 Pulse 70 10/09/17 07:57 Resp 20 10/09/17 07:57 BP 166/109 10/09/17 09:03 Pulse Ox 98 10/09/17 07:57 - Exam Narrative exam: MSE: Appearance: calm, cooperative Behavior: regular eye contact Speech: regular rate and tone Mood: "okay" Affect: congruent to mood Thought Process: circumstantial Thought Content: denies SI/ and AVH's Motor Activity: lying in bed Cognition: A/O x3 Insight: fair Judgment: fair Assessment and Plan Impression: Hx of Schizoaffective DO per the patient. Today the patient is calm and cooperative during the assessment. NA 141. Medical: Acute Metabolic Encephalopathy from severe hyponatremia Recommendation/Plan: The patient is seen by [facility] for outpatient psy services. Per Mal Rosario from [facility], the patient is current with his monthly Invega injection.
[2017-10-09] MEDS ORDERED: KIONEX PO NR (15:00)
[2017-10-09 16:04] VITALS: BP 128/95
--- NOTE | 2017-10-12 19:07 | Progress Note ---
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 Today, patient presents very disorganzied. Patient speech is nonsensical. Provider unable to follow patient's conversation. He states " I like the browner type. I have Blue cross Blue shield. My legislative parents. Every state, every nation." Per RN patient has been disorganized but not agitated. Per colleagues patient symptoms are improving. He is no longer agitated. He later states " I was taking Depakote and Invega." He reports medication is effective and he is compliant. Mental Status Exam - Vital signs Last Vital Signs Temp 99.2 F 10/09/17 15:35 Pulse 72 10/09/17 15:35 Resp 18 10/09/17 15:35 BP 128/95 10/09/17 15:35 Pulse Ox 96 10/09/17 15:35 - Exam Narrative exam: Mental Status Exam General Appearance: Casually dressed-hospital gown Attitude/Behavior: Cooperative Sensorium: Distracted Orientation: Alert and oriented x 3 ( person, place, and time) Psychomotor and Musculoskeletal Activity: WNL Mood: Anxious Affect: Constricted: Speech/Language: Rapid Thought Process: Disorganized, Loose Associations Thought Content: Impoverished, paranoid ( Believes two men want to hide him from his parent) Perception: WNL- patient denies Concentration/Attention: Impaired concentration/attention Memory: Unable to assess Suicidal Ideation/Plan: "No." Homicidal Ideation/Plan: "No." Assessment and Plan Impression: Hx of Schizoaffective DO per the patient. Today patient presents anxious and disorganized with loose associations. Provider unable to fully assess patient secondary to disorganized thought process. Medical: Acute Metabolic Encephalopathy from severe hyponatremia Recommendation/Plan: 1. Continue medication and current treatment plan. 2. Assist with outpatient psychiatric services. 3. Reassess for follow-up evaluation on 10/08/17.
== END 2017-10-09 18:30 | disposition home or self-care (01) | DRG 640 ==
LOC: ED 02:42 → 3A 07:17
PROVIDERS: ADMIT Internal Medicine; ATTEND Hospitalist
DX: E87.1 Hypo-osmolality and hyponatremia (principal); G93.41 Metabolic encephalopathy; R63.1 Polydipsia; F25.9 Schizoaffective disorder, unspecified; F17.210 Nicotine dependence, cigarettes, uncomplicated; R56.9 Unspecified convulsions
CPT/HCPCS: 36415; 80048; 80307; 80320; 81001; 82436; 82962; 83930; 83935; 84100; 84295; 84300; 85007; 85025; 96361; 96374; G0480; J0360; J1644; J3486; J7030; J7070